=== PATIENT | female | born 1970 | race Caucasian/White ===

== ENCOUNTER 2017-09-02 19:34 | Emergency (ER) | payer OTHER ==
[2017-09-02 19:48] VITALS: BP 136/92; PULSE 98; TEMP 98; BMI 25.7
--- NOTE | 2017-09-02 20:01 | PDOC ---
History of Present Illness - General Chief Complaint: Pain, Acute Stated Complaint: PAIN Time Seen by Provider: 09/02/17 20:00 Past History - Past Medical History Allergies/Adverse Reactions: Allergies Allergy/AdvReac Type Severity Reaction Status Date / Time morphine Allergy Verified 09/02/17 21:01 Home Medications: Ambulatory Orders Clonazepam 0.5 mg PO ASDIR 09/02/17 Estazolam 2 mg PO ASDIR 09/02/17 Gabapentin 600 mg PO ASDIR 09/02/17 Tramadol HCl/Acetaminophen [Tramadol-Acetaminophn 37.5-325] 1 each PO ASDIR Venlafaxine HCl ER [Effexor Xr -] 150 mg PO DAILY 09/02/17 COPD: No Thyroid Disease: Yes (Fibromyalgia) - Suicide/Smoking/Psychosocial Hx Smoking History: Never smoked Have you smoked in the past 12 months: No Information on smoking cessation initiated: No Hx Alcohol Use: No Drug/Substance Use Hx: No Substance Use Type: None *Physical Exam - Vital Signs Last Vital Signs Temp Pulse Resp BP Pulse Ox 98 F 98 H 20 136/92 99 09/02/17 19:41 09/02/17 19:41 09/02/17 19:41 09/02/17 19:41 09/02/17 19:41 *DC/Admit/Observation/Transfer Diagnosis at time of Disposition: Shoulder pain, left Qualifiers: Chronicity: acute Qualified Code(s): M25.512 - Pain in left shoulder - Discharge Dispostion Disposition: HOME Condition at time of disposition: Good Admit: No - Referrals Referrals: Devyn Monroe MD [Staff Physician] - - Patient Instructions Printed Discharge Instructions: DI for Shoulder Pain, How to Use a Sling Additional Instructions: You have shoulder pain. Your x-rays were negative for fracture or dislocation. You were given a sling for support. Wear the sling during the day. Ice the arm for 20 minute intervals 5 times a day. Take ibuprofen 800mg three times a day, not to exceed 3,000mg a day. Take your prescribed tramadol to help with the pain as well. Please follow up with orthopedics by Thursday. A phone number has been provided to you. You should also follow with a primary care doctor for which a referal has also been provided. Return to the ED if your pain gets worse, if you cannot feel your fingers, or if you have any changes in your symptoms Tienes dolor en el hombro Jennifer karla X fueron negativos por fractura o dislocaci n. Te dieron un cabestrillo por apoyo. Use el cabestrillo reagan el da. Hiele el brazo por intervalos de 20 minutos 5 veces por da. [place] ibuprofeno 800 mg joyce veces al da, que no exceda los 3,000 mg por da. [place] oliveira tramadol prescrito para ayudar con el dolor tambin. Por favor haz un seguimiento con ortopedia el viernes. Se te strauss proporcionado un nmero de telfono. Tambin debe seguir con un mdico de atencin primaria para el cual tambin se proporcion un referido. Regrese al departamento de emergencias si oliveira dolor empeora, si no puede sentir jennifer dedos, o si tiene algn cambio en jennifer sntomas Print Language: CZECH - Post Discharge Activity
[2017-09-02] MEDS ORDERED: traMADol HCL 50 MG TABLET PO ONE (21:02)
[2017-09-02] MEDS ORDERED: traMADol HCL 50 MG TABLET ONE (21:04)
[2017-09-02] MEDS ORDERED: IBUPROFEN 400 MG TABLET (FP) PO ONE ×2 (22:36→22:39)
== END 2017-09-02 23:49 | disposition home or self-care (01) ==
LOC: JERFT 19:34
DX: M25.512 Pain in left shoulder (principal)
CPT/HCPCS: 73030-TC-LT; 73060-TC-LT; 93971; 99281-25

== ENCOUNTER 2018-11-08 12:22 | Emergency (ER) | payer OTHER ==
[2018-11-08 12:42] VITALS: BP 143/86; PULSE 77; TEMP 97.9; BMI 25.0
[2018-11-08] MEDS ORDERED: KETOROLAC TROMETHAMINE 60 MG/2 ML VIAL IM ONE (13:42)
[2018-11-08] MEDS ORDERED: KETOROLAC TROMETHAMINE 60 MG/2 ML VIAL ONE (13:50)
--- NOTE | 2018-11-08 14:12 | PDOC ---
History of Present Illness - General Chief Complaint: Injury Stated Complaint: SLIP AND FALL Time Seen by Provider: 11/08/18 13:36 - History of Present Illness Initial Comments: 11/08/18 14:08 48-year-old female with fibromyalgia presents for right-sided pain after fall. No loss of consciousness post injury nausea vomiting or headache. Past History - Past Medical History Allergies/Adverse Reactions: Allergies Allergy/AdvReac Type Severity Reaction Status Date / Time morphine Allergy Verified 09/02/17 21:01 Home Medications: Ambulatory Orders Clonazepam 0.5 mg PO ASDIR 09/02/17 Estazolam 2 mg PO ASDIR 09/02/17 Gabapentin 600 mg PO ASDIR 09/02/17 Venlafaxine HCl ER [Effexor Xr -] 150 mg PO DAILY 09/02/17 Cyclobenzaprine HCl [Flexeril 10 mg] 10 mg PO HS PRN #10 tablet 11/08/18 COPD: No Thyroid Disease: Yes (Fibromyalgia) - Suicide/Smoking/Psychosocial Hx Smoking History: Never smoked Have you smoked in the past 12 months: No Hx Alcohol Use: No Drug/Substance Use Hx: No Substance Use Type: None Review of Systems - Review of Systems Musculoskeletal: Yes: Muscle Pain *Physical Exam - Vital Signs Last Vital Signs Temp Pulse Resp BP Pulse Ox 97.9 F 77 20 143/86 100 11/08/18 12:38 11/08/18 12:38 11/08/18 12:38 11/08/18 12:38 11/08/18 12:38 - Physical Exam Comments: 11/08/18 14:09 Cervical thoracic and lumbar spine skin color and temperature are normal. There is no midline tenderness mild pallor spinal musculature spasm without gross sensorimotor deficits in either by lateral upper or lower extremities. Decreased range of motion. Tenderness is at a proportion to the examination. Patient's exquisitely tender even to light touch. She has no gross sensorimotor deficits is neurovascular intact. Moderate Sedation - Procedure Monitoring Vital Signs: Procedure Monitoring Vital Signs Temperature 97.9 F 11/08/18 12:38 Pulse Rate 77 11/08/18 12:38 Respiratory Rate 20 11/08/18 12:38 Blood Pressure 143/86 11/08/18 12:38 O2 Sat by Pulse Oximetry (%) 100 11/08/18 12:38 ED Treatment Course - Medications Given in the ED: ED Medications Discontinued Medications Generic Name Dose Route Start Last Admin Trade Name Ck PRN Reason Stop Dose Admin Ketorolac Tromethamine 60 mg 11/08/18 13:42 11/08/18 13:54 Toradol Injection - IM 11/08/18 13:43 60 mg ONCE ONE Administration Medical Decision Making - Medical Decision Making 11/08/18 14:10 Minimal relief with Toradol. I will treat her with Flexeril and have her follow- up with orthopedics *DC/Admit/Observation/Transfer Diagnosis at time of Disposition: Muscle strain - Discharge Dispostion Disposition: HOME Condition at time of disposition: Stable Decision to Admit order: No - Referrals Referrals: Seferino Lim MD [Staff Physician] - - Patient Instructions Printed Discharge Instructions: How to Prevent Falls Additional Instructions: Leese use the Flexeril as directed and return to the emergency room should symptoms weight worsen or go unresolved. May weight-bear as tolerated with use of crutches. Follow-up with your primary care physician as well as orthopedic surgery in 1-2 days for further evaluation and treatment options. - Post Discharge Activity
== END 2018-11-08 14:51 | disposition home or self-care (01) ==
LOC: JERFT 12:22
PROC: 3E0233Z Introduction of Anti-inflammatory into Muscle, Percutaneous Approach (ICD-10-PCS; principal; 2018-11-08)
DX: T14.8XXA Other injury of unspecified body region, initial encounter (principal); M79.7 Fibromyalgia; W01.0XXA Fall on same level from slipping, tripping and stumbling without subsequent striking against object, initial encounter; Y93.89 Activity, other specified; Y92.89 Other specified places as the place of occurrence of the external cause; Y99.8 Other external cause status
CPT/HCPCS: 96372; 99281-25

== ENCOUNTER 2018-12-02 13:17 | Emergency (ER) | payer OTHER ==
[2018-12-02 13:41] VITALS: BP 112/68; PULSE 86; TEMP 98.7; BMI 25.7
[2018-12-02] MEDS ORDERED: KETOROLAC TROMETHAMINE 30 MG/1 ML VIAL IM ONE (14:29)
[2018-12-02] MEDS ORDERED: diazePAM 2 MG TABLET PO ONE (14:29)
--- NOTE | 2018-12-02 14:34 | PDOC ---
History of Present Illness - General Chief Complaint: Headache Stated Complaint: HEADACHE Time Seen by Provider: 12/02/18 14:04 History Source: Patient Exam Limitations: No Limitations - History of Present Illness Initial Comments: 12/02/18 14:32 48 year old female with no significant medical or surgical history presents with pain to back of neck and head x 2 weeks. Patient states fell in front of office building, with no nausea, vomiting or loc. Denies dizziness at present. Timing/Duration: reports: 1 week Severity: Yes: mild Associated Symptoms: reports: denies symptoms Past History - Travel Traveled outside of the country in the last 30 days: No Close contact w/someone who was outside of country & ill: No - Past Medical History Allergies/Adverse Reactions: Allergies Allergy/AdvReac Type Severity Reaction Status Date / Time morphine Allergy Verified 12/02/18 13:36 Home Medications: Ambulatory Orders Clonazepam 0.5 mg PO ASDIR 09/02/17 Estazolam 2 mg PO ASDIR 09/02/17 Gabapentin 600 mg PO ASDIR 09/02/17 Venlafaxine HCl ER [Effexor Xr -] 150 mg PO DAILY 09/02/17 Cyclobenzaprine HCl [Flexeril 10 mg] 10 mg PO HS PRN #10 tablet 11/08/18 Cyclobenzaprine HCl [Flexeril -] 5 mg PO HS #3 tablet 12/02/18 COPD: No Thyroid Disease: Yes (Fibromyalgia) - Immunization History Immunization Up to Date: Yes - Suicide/Smoking/Psychosocial Hx Smoking History: Never smoked Have you smoked in the past 12 months: No Hx Alcohol Use: No Drug/Substance Use Hx: No Substance Use Type: None Neuro Specific PMHX - Complaint Specific PMHX Glaucoma: No Herniated Disk: No Laminectomy: No Migraine: No Multiple Sclerosis: No Neuropathy: No TIA: No Review of Systems - Review of Systems Able to Perform ROS?: Yes Is the patient limited Ghanaian proficient: No Constitutional: No: Chills, Fever, Weakness HEENTM: Yes: Other (neck pain). No: Nose Pain, Throat Pain, Mouth Swelling Cardiac (ROS): No: Chest Pain ABD/GI: No: Poor Appetite, Poor Fluid Intake : No: Discharge, Incontinence Neurological: Yes: Headache. No: Numbness, Paresthesia, Tingling, Weakness, Unsteady Gait *Physical Exam - Vital Signs Last Vital Signs Temp Pulse Resp BP Pulse Ox 98.7 F 86 16 112/68 99 12/02/18 13:36 12/02/18 13:36 12/02/18 13:36 12/02/18 13:36 12/02/18 13:36 - Physical Exam General Appearance: Yes: Nourished, Appropriately Dressed HEENT: positive: Pharynx Normal. negative: Nasal Congestion, Rhinorrhea, Sinus Tenderness Neck: positive: Supple. negative: Lymphadenopathy (R), Lymphadenopathy (L), Rigidity, Tender midline Respiratory/Chest: positive: Lungs Clear Cardiovascular: positive: Regular Rhythm, Regular Rate Extremity: positive: Normal Capillary Refill Neurologic: positive: media coordinator II-XII NML intact Moderate Sedation - Procedure Monitoring Vital Signs: Procedure Monitoring Vital Signs Temperature 98.7 F 12/02/18 13:36 Pulse Rate 86 12/02/18 13:36 Respiratory Rate 16 12/02/18 13:36 Blood Pressure 112/68 12/02/18 13:36 O2 Sat by Pulse Oximetry (%) 99 12/02/18 13:36 Medical Decision Making - Medical Decision Making 12/02/18 14:36 48 year old female with no significant medical or surgical history presents with pain in the back of her head and neck pain had xray of cervical spine will await results analgesia and muscle relaxant neck xray from pmd 12/02/18 15:38 no relief of pain sent for head ct and neck ct 12/02/18 17:[address] neck [address] with no fracture or abnormalities pt reports relieve with muscle relaxant d/c home with 3 days of flexeril and recommendation to continue taking medications previously prescribed *DC/Admit/Observation/Transfer Diagnosis at time of Disposition: Neck pain Head ache Qualifiers: Headache type: unspecified Headache chronicity pattern: acute headache Intractability: not intractable Qualified Code(s): R51 - Headache - Discharge Dispostion Disposition: HOME Condition at time of disposition: Good Decision to Admit order: No - Prescriptions Prescriptions: Cyclobenzaprine HCl [Flexeril -] 5 mg PO HS #3 tablet - Referrals Referrals: Mona Martinez MD [Primary Care Provider] - (follow up as previously scheduled ) - Patient Instructions Printed Discharge Instructions: Sinus Headache Additional Instructions: Please follow up with doctor; neurologist as previously scheduled Return to emergency room for change in vision, nausea or vomiting - Post Discharge Activity Forms/Work/School Notes: Back to Work
[2018-12-02] MEDS ORDERED: KETOROLAC TROMETHAMINE 30 MG/1 ML VIAL ONE (14:38)
[2018-12-02] MEDS ORDERED: diazePAM 2 MG TABLET ONE (14:38)
== END 2018-12-02 18:24 | disposition home or self-care (01) ==
LOC: JER 13:17 → JERFT 13:17
PROC: 3E0233Z Introduction of Anti-inflammatory into Muscle, Percutaneous Approach (ICD-10-PCS; principal; 2018-12-02)
DX: M54.2 Cervicalgia (principal); R51 Headache; M79.7 Fibromyalgia
CPT/HCPCS: 70450-TC; 72125-TC; 99281-25

== ENCOUNTER 2019-01-05 09:11 | Emergency (ER) | payer OTHER ==
[2019-01-05 09:30] VITALS: BP 119/75; PULSE 88; TEMP 98.6; BMI 26.6
[2019-01-05] MEDS ORDERED: KETOROLAC TROMETHAMINE 60 MG/2 ML VIAL IM ONE (09:58)
[2019-01-05] MEDS ORDERED: KETOROLAC TROMETHAMINE 60 MG/2 ML VIAL ONE (10:00)
--- NOTE | 2019-01-05 10:04 | PDOC ---
History of Present Illness - General Chief Complaint: Pain, Acute Stated Complaint: RT SHOULDER PAIN RADIATES TO THE BACK Time Seen by Provider: 01/05/19 09:38 History Source: Patient Exam Limitations: No Limitations - History of Present Illness Initial Comments: 01/05/19 09:58 Patient came with complaints of worsening chronic body pain. Is on a pain management program for osteoarthritis for multiple sites. Takes tramadol, gabapentin, and Naprosyn but states her right shoulder and arm pain is progressively worsened. Did not speak to her neurologist or pain management physician and has not taken any new medications recently for pain relief. Denies fevers, chest pain or palpitations, no recent injury or trauma. Has no accident or illness associated with this chronic pain. Occurred: reports: this morning, yesterday Severity: reports: moderate Pain Location: reports: upper extremity (right shoulder) Method of Injury: Yes: unknown Modifying Factors: improves with: None Loss of Consciousness: no loss of consciousness Past History - Travel Traveled outside of the country in the last 30 days: No Close contact w/someone who was outside of country & ill: No - Past Medical History Allergies/Adverse Reactions: Allergies Allergy/AdvReac Type Severity Reaction Status Date / Time morphine Allergy Verified 01/05/19 09:30 Home Medications: Ambulatory Orders Clonazepam 0.5 mg PO ASDIR 09/02/17 Estazolam 2 mg PO ASDIR 09/02/17 Gabapentin 600 mg PO ASDIR 09/02/17 Venlafaxine HCl ER [Effexor Xr -] 150 mg PO DAILY 09/02/17 Naproxen [Naprosyn] 500 mg PO BID 01/05/19 Tramadol HCl 50 mg PO BID 01/05/19 COPD: No Thyroid Disease: Yes (Fibromyalgia) Other medical history: osteoarthritis - Immunization History Immunization Up to Date: Yes - Suicide/Smoking/Psychosocial Hx Smoking History: Never smoked Have you smoked in the past 12 months: No Information on smoking cessation initiated: No Hx Alcohol Use: No Drug/Substance Use Hx: No Substance Use Type: None Review of Systems - Review of Systems Able to Perform ROS?: Yes Is the patient limited Zimbabwean proficient: Yes Constitutional: Yes: Symptoms Reported, See HPI, Loss of Appetite, Malaise. No : Fever HEENTM: Yes: See HPI. No: Symptoms Reported Respiratory: No: See HPI ABD/GI: No: Symptoms Reported : No: Symptoms Reported Musculoskeletal: Yes: Symptoms Reported, See HPI, Muscle Pain, Muscle Weakness Integumentary: Yes: See HPI. No: Symptoms Reported, Bruising Neurological: Yes: Symptoms reported, See HPI, Headache. No: Numbness, Paresthesia Psychiatric: Yes: Depression All Other Systems: Reviewed and Negative *Physical Exam - Vital Signs Last Vital Signs Temp Pulse Resp BP Pulse Ox 98.6 F 88 18 119/75 100 01/05/19 09:28 01/05/19 09:28 01/05/19 09:28 01/05/19 09:28 01/05/19 09:28 - Physical Exam General Appearance: Yes: Nourished, Appropriately Dressed, Apparent Distress, Mild Distress, Moderate Distress HEENT: positive: EMIL, Normal ENT Inspection, TMs Normal, Pharynx Normal Neck: positive: Supple. negative: Tender Respiratory/Chest: positive: Lungs Clear, Normal Breath Sounds Gastrointestinal/Abdominal: positive: Normal Bowel Sounds, Soft. negative: Tender Musculoskeletal: positive: Other (pain to upper right arm/ no swelling/ bone pain./ no deformity , HAs FROM to 180degrees to abduction/ forward flexion/ ). negative: Muscle Spasm, Vertebral Tenderness Extremity: positive: Normal Capillary Refill, Normal Inspection Integumentary: positive: Normal Color, Dry, Warm, Pale Neurologic: positive: photographic double II-XII NML intact, Fully Oriented, Alert, Normal Mood/ Affect, Normal Response, Motor Strength 5/5 Moderate Sedation - Procedure Monitoring Vital Signs: Procedure Monitoring Vital Signs Temperature 98.6 F 01/05/19 09:28 Pulse Rate 88 01/05/19 09:28 Respiratory Rate 18 01/05/19 09:28 Blood Pressure 119/75 01/05/19 09:28 O2 Sat by Pulse Oximetry (%) 100 01/05/19 09:28 Progress Note - Progress Note Progress Note: Acute on chronic pain, will refer back to Pain Management *DC/Admit/Observation/Transfer Diagnosis at time of Disposition: Chronic pain disorder - Discharge Dispostion Disposition: HOME Condition at time of disposition: Stable Decision to Admit order: No - Referrals - Patient Instructions Printed Discharge Instructions: DI for Chronic Pain -- Adult Additional Instructions: Rest, ice to area on and off for 15 minutes 4-6 times a day Avoid heavy lifting or exercise until pain and swelling is resolved or until further directed Followup with neurologist/ painb management/ orthopedist in one to 2 days if not improving, if significantly improved may wait one week for followup Continue all pain medications as directed and seek evaluation with Pain Management - Post Discharge Activity
== END 2019-01-05 10:31 | disposition home or self-care (01) ==
LOC: JERFT 09:11
PROC: 3E0233Z Introduction of Anti-inflammatory into Muscle, Percutaneous Approach (ICD-10-PCS; principal; 2019-01-05)
DX: G89.4 Chronic pain syndrome (principal); M79.7 Fibromyalgia; M19.90 Unspecified osteoarthritis, unspecified site
CPT/HCPCS: 96372; 99281-25

== ENCOUNTER 2019-04-23 17:59 | Emergency (ER) | payer OTHER ==
[2019-04-23 18:07] VITALS: BP 121/76; PULSE 88; TEMP 98.2; BMI 29.2
--- NOTE | 2019-04-23 19:04 | PDOC ---
History of Present Illness - General Chief Complaint: Pain Stated Complaint: LT LEG SWELLING Time Seen by Provider: 04/23/19 18:54 History Source: Patient Exam Limitations: No Limitations - History of Present Illness Initial Comments: 04/23/19 19:00 c./o pain and swelling to left lower extremity x 3-4 days. IS taking many tyoes of antinflammatories for Fibromyalgia but concerned as feels is becoming worse. Occurred: reports: just prior to arrival (a few days ) Pain Location: reports: lower extremity Associated Symptoms (Fall): denies symptoms Past History - Travel Traveled outside of the country in the last 30 days: No Close contact w/someone who was outside of country & ill: No - Past Medical History Allergies/Adverse Reactions: Allergies Allergy/AdvReac Type Severity Reaction Status Date / Time morphine Allergy Verified 04/23/19 18:07 Home Medications: Ambulatory Orders Clonazepam 0.5 mg PO ASDIR 09/02/17 Estazolam 2 mg PO ASDIR 09/02/17 Gabapentin 600 mg PO ASDIR 09/02/17 Venlafaxine HCl ER [Effexor Xr -] 150 mg PO DAILY 09/02/17 Naproxen [Naprosyn] 500 mg PO BID 01/05/19 Tramadol HCl 50 mg PO BID 01/05/19 Diclofenac Sodium [Voltaren] 100 gm TP BID #1 gel..gram. 04/25/19 COPD: No Thyroid Disease: Yes (Fibromyalgia) Other medical history: osteoarthritis - Immunization History Immunization Up to Date: Yes - Suicide/Smoking/Psychosocial Hx Smoking History: Never smoked Have you smoked in the past 12 months: No Hx Alcohol Use: No Drug/Substance Use Hx: No Substance Use Type: None Review of Systems - Review of Systems Able to Perform ROS?: Yes Is the patient limited Amharic proficient: Yes Constitutional: Yes: Symptoms Reported, See HPI, Malaise. No: Fever HEENTM: No: See HPI Respiratory: Yes: See HPI. No: Cough Cardiac (ROS): Yes: See HPI. No: Symptoms Reported, Chest Pain Musculoskeletal: Yes: Symptoms Reported, See HPI, Joint Swelling (left knee ), Muscle Pain Integumentary: Yes: See HPI, Erythema. No: Symptoms Reported Neurological: Yes: Symptoms reported All Other Systems: Reviewed and Negative *Physical Exam - Vital Signs Last Vital Signs Temp Pulse Resp BP Pulse Ox 98.2 F 88 18 121/76 99 04/23/19 18:04 04/23/19 18:04 04/23/19 18:04 04/23/19 18:04 04/23/19 18:04 - Physical Exam General Appearance: Yes: Nourished, Appropriately Dressed, Apparent Distress HEENT: positive: EMIL, Normal ENT Inspection, TMs Normal, Pharynx Normal Neck: positive: Supple. negative: Tender Respiratory/Chest: positive: Lungs Clear, Normal Breath Sounds Gastrointestinal/Abdominal: positive: Soft Extremity: positive: Normal Inspection, Normal Range of Motion, Tender (= patient reports as swollen but no obvious difference in calf circumfrence ) Integumentary: positive: Normal Color, Warm, Erythema (faint erythema to upper posterior fossa left leg/ knee otw normal ) Neurologic: positive: progressive care manager II-XII NML intact, Fully Oriented, Alert, Normal Mood/ Affect, Normal Response, Motor Strength 5/5 Progress Note - Progress Note Progress Note: will obtain US leg to R/O DVT. *DC/Admit/Observation/Transfer Diagnosis at time of Disposition: Muscle strain, lower leg Qualifiers: Encounter type: initial encounter Laterality: left Qualified Code(s): S86.912A - Strain of unspecified muscle(s) and tendon(s) at lower leg level, left leg, initial encounter - Discharge Dispostion Disposition: HOME Condition at time of disposition: Stable Decision to Admit order: No - Prescriptions Prescriptions: Diclofenac Sodium [Voltaren] 100 gm TP BID #1 gel..gram. - Referrals Referrals: Dorcas Kumari MD [Primary Care Provider] - - Patient Instructions Printed Discharge Instructions: DI for Calf Muscle Strain Additional Instructions: Rest, ice to area on and off for 15 minutes 4-6 times a day Avoid heavy lifting or exercise until pain and swelling is resolved or until further directed Keep area highly elevated to reduce swelling Use splints/Merrick wrap as directed Followup with orthopedist in one to 2 days if not improving, if significantly improved may wait one week for followup with orthopedist May use ibuprofen every 6 hours as needed for pain - Post Discharge Activity Forms/Work/School Notes: Back to Work
== END 2019-04-23 20:26 | disposition home or self-care (01) ==
LOC: JERFT 17:59
DX: S86.812A Strain of other muscle(s) and tendon(s) at lower leg level, left leg, initial encounter (principal); M79.7 Fibromyalgia; M19.90 Unspecified osteoarthritis, unspecified site
CPT/HCPCS: 93971-TC; 99282-25

== ENCOUNTER 2019-05-03 14:50 | Emergency (ER) | payer OTHER ==
--- NOTE | 2019-05-03 15:04 | PDOC ---
Rapid Medical Evaluation Time Seen by Provider: 05/03/19 15:01 Medical Evaluation: Allergies Allergy/AdvReac Type Severity Reaction Status Date / Time morphine Allergy Verified 05/03/19 14:58 05/03/19 15:01 I have performed a brief in-person evaluation of this patient. The patient presents with a chief complaint of: h/o fibromyalgia, here w/ [facility]/ neck/arm/leg pain c/w her fibromyalgia, w/ no relief w/ meds Pertinent physical exam findings:stable and in NAD I have ordered the following:nothing The patient will proceed to the ED for further evaluation. Discharge Disposition - Diagnosis Pain of multiple sites - Referrals - Patient Instructions - Post Discharge Activity
[2019-05-03 15:07] VITALS: BP 157/79; PULSE 83; TEMP 98.5; BMI 28.3
[2019-05-03] MEDS: METHOCARBAMOL 500 MG TABLET PO ONE ×2 (15:41→15:48)
--- NOTE | 2019-05-03 15:42 | PDOC ---
History of Present Illness - General Chief Complaint: Pain, Acute Stated Complaint: RT. SIDE BODY PAIN Time Seen by Provider: 05/03/19 15:01 History Source: Patient Exam Limitations: Language Barrier (Ezekiel Reno #[id number]) - History of Present Illness Initial Comments: 05/03/19 15:35 HISTORY OF PRESENT ILLNESS: 49-year-old woman past medical history of osteoarthritis and fibromyalgia presents emergency department for evaluation of right-sided neck and shoulder pain for 4 days. Patient has been taking her Ultracet, meloxicam and gabapentin with minimal relief of symptoms. Patient reports she sees Dr. Pineda for her pain management and has an appointment later this week. She last saw him approximately one month ago where he increased her gabapentin 1200 mg twice a day. Patient denies any aggravating or alleviating factors. She reports her pain is 10/10 but is unable to describe the feeling. She is only able to states it feels like her fibromyalgia with the arthritis. Patient denies any neurosensory deficits. No recent travel or sick contacts. PAST MEDICAL HISTORY: see HPI SURGICAL HISTORY: Denies ALLERGIES: No known drug allergies REVIEW OF SYSTEMS General/Constitutional: Denies fever or chills. Denies weakness, weight change. HEENT: Denies change in vision. Denies ear pain or discharge. Denies sore throat. Cardiovascular: Denies chest pain or shortness of breath. Respiratory: Denies cough, wheezing, or hemoptysis. Gastrointestinal: Denies nausea, vomiting, diarrhea or constipation. Denies rectal bleeding. Genitourinary: Denies dysuria, frequency, or change in urination. Musculoskeletal: see HPI Skin and breasts: Denies rash or easy bruising. Neurologic: Denies headache, vertigo, loss of consciousness, or loss of sensation. Psychiatric: Denies depression or anxiety. Endocrine: Denies increased thirst. Denies abnormal weight change. Hematologic/Lymphatic: Denies anemia, easy bleeding, or history of blood clots. Allergic/Immunologic: Denies hives or skin allergy. Denies latex allergy. PHYSICAL EXAM General Appearance: Well-appearing, appropriately dressed. No apparent distress , no intoxication. Respiratory/Chest: Lungs CTAB. No shortness of breath, chest tenderness, respiratory distress, accessory muscle use. No crackles, rales, rhonchi, stridor , wheezing, dullness Cardiovascular: RRR. S1, S2. No JVD, murmur, bradycardia, tachycardia. Vascular Pulses: Dorsalis-Pedis (R): 2+, Dorsalis-Pedis (L): 2+ Lymphatic: No adenopathy, tenderness. Musculoskeletal/Extremities: Normal inspection. FROM of all extremities, normal capillary refill. Pelvis Stable. No CVA tenderness. No tenderness to extremities, pedal edema, swelling, erythema or deformity. Palpable muscle spasm present to the right trapezius. Integumentary: Appropriate color, dry, warm. No cyanosis, erythema, jaundice or rash Neurologic: rehab rn II-XII intact. Fully oriented, alert. Appropriate mood/affect. Motor strength 5/5. No appreciable EOM palsy, facial droop or sensory deficit. Past History - Past Medical History Allergies/Adverse Reactions: Allergies Allergy/AdvReac Type Severity Reaction Status Date / Time morphine Allergy Verified 05/03/19 14:58 Home Medications: Ambulatory Orders Clonazepam 0.5 mg PO ASDIR 09/02/17 Estazolam 2 mg PO ASDIR 09/02/17 Gabapentin 600 mg PO ASDIR 09/02/17 Venlafaxine HCl ER [Effexor Xr -] 150 mg PO DAILY 09/02/17 Naproxen [Naprosyn] 500 mg PO BID 01/05/19 Tramadol HCl 50 mg PO BID 01/05/19 Diclofenac Sodium [Voltaren] 100 gm TP BID #1 gel..gram. 04/25/19 Methocarbamol [Robaxin -] 1,000 mg PO BID #30 tablet 05/03/19 COPD: No Thyroid Disease: Yes (Fibromyalgia) - Immunization History Immunization Up to Date: Yes - Suicide/Smoking/Psychosocial Hx Smoking History: Never smoked Have you smoked in the past 12 months: No Information on smoking cessation initiated: No Hx Alcohol Use: No Drug/Substance Use Hx: No Substance Use Type: None *Physical Exam - Vital Signs Last Vital Signs Temp Pulse Resp BP Pulse Ox 98.5 F 83 17 157/79 98 05/03/19 15:03 05/03/19 15:03 05/03/19 15:03 05/03/19 15:03 05/03/19 15:03 Medical Decision Making - Medical Decision Making 05/03/19 15:42 A/P: 49-year-old woman with muscle spasms of the trapezius Robaxin 1 g orally now Discharge home with prescription for Biaxin to follow-up with Dr. Pineda as previously scheduled. *DC/Admit/Observation/Transfer Diagnosis at time of Disposition: Muscle spasm of shoulder region - Discharge Dispostion Disposition: HOME Condition at time of disposition: Fair Decision to Admit order: No - Prescriptions Prescriptions: Methocarbamol [Robaxin -] 1,000 mg PO BID #30 tablet - Referrals Referrals: Dorcas Kumari MD [Primary Care Provider] - - Patient Instructions Additional Instructions: Rest, no heavy lifting or exercise until pain is resolved Hot soaks to neck and low back as often as possible/hot showers or Jacuzzis No massage or therapy until spasm is gone Robaxin 1500mg every 8 hours as needed for spasm If not significant improvement within 24 hours with medication and rest regime, followup with private physician for change in medications and /or therapy. - Post Discharge Activity
[2019-05-03] MEDS ORDERED: METHOCARBAMOL 500 MG TABLET ONE (15:44)
[2019-05-03] MEDS ORDERED: KETOROLAC TROMETHAMINE 60 MG/2 ML VIAL IM ONE (16:14)
[2019-05-03] MEDS ORDERED: KETOROLAC TROMETHAMINE 60 MG/2 ML VIAL ONE (16:16)
== END 2019-05-03 15:50 | disposition home or self-care (01) ==
LOC: JERFT 14:50
PROC: 3E0233Z Introduction of Anti-inflammatory into Muscle, Percutaneous Approach (ICD-10-PCS; principal; 2019-05-03)
DX: M79.7 Fibromyalgia (principal); M19.90 Unspecified osteoarthritis, unspecified site
CPT/HCPCS: 96372; 99281-25

== ENCOUNTER 2019-06-15 13:50 | Emergency (ER) | payer OTHER ==
[2019-06-15 13:58] VITALS: BP 128/79; PULSE 88; TEMP 99.2; BMI 28.3
--- NOTE | 2019-06-15 13:58 | PDOC ---
Rapid Medical Evaluation Time Seen by Provider: 06/15/19 13:55 Medical Evaluation: Allergies Allergy/AdvReac Type Severity Reaction Status Date / Time morphine Allergy Verified 05/03/19 14:58 06/15/19 13:57 06/15/19 13:07 I have performed a brief in-person evaluation of this patient. The patient presents with a chief complaint of:HENDERSON/neck pain, recurrent. H/o fibromyalgia and OA. Of note, CT cspine this year was unremarkable Pertinent physical exam findings:unremarkable I have ordered the following:nothing The patient will proceed to the ED for further evaluation. Discharge Disposition - Diagnosis Neck pain - Referrals - Patient Instructions - Post Discharge Activity
[2019-06-15] MEDS ORDERED: KETOROLAC TROMETHAMINE 60 MG/2 ML VIAL IM ONE (14:40)
[2019-06-15] MEDS ORDERED: KETOROLAC TROMETHAMINE 60 MG/2 ML VIAL ONE (14:41)
--- NOTE | 2019-06-15 14:48 | PDOC ---
History of Present Illness - General Chief Complaint: Pain Stated Complaint: PAIN Time Seen by Provider: 06/15/19 13:55 - History of Present Illness Initial Comments: 06/15/19 14:47 49-year-old female presents for evaluation of one week of neck pain with cervical radicular symptoms intermittently. She takes tramadol and Neurontin with minimal relief. Past History - Past Medical History Allergies/Adverse Reactions: Allergies Allergy/AdvReac Type Severity Reaction Status Date / Time morphine Allergy Verified 06/15/19 13:58 Home Medications: Ambulatory Orders Clonazepam 0.5 mg PO ASDIR 09/02/17 Estazolam 2 mg PO ASDIR 09/02/17 Gabapentin 600 mg PO ASDIR 09/02/17 Venlafaxine HCl ER [Effexor Xr -] 150 mg PO DAILY 09/02/17 Naproxen [Naprosyn] 500 mg PO BID 01/05/19 Tramadol HCl 50 mg PO BID 01/05/19 Diclofenac Sodium [Voltaren] 100 gm TP BID #1 gel..gram. 04/25/19 Methocarbamol [Robaxin -] 1,000 mg PO BID #30 tablet 05/03/19 Cyclobenzaprine HCl [Flexeril 10 mg] 10 mg PO HS PRN #10 tablet 06/15/19 Methylprednisolone [Medrol Dose Miguel] 4 mg PO ASDIR #21 tablet 06/15/19 COPD: No Thyroid Disease: Yes (Fibromyalgia) Other medical history: osteoarthritis in her back - Immunization History Immunization Up to Date: Yes - Suicide/Smoking/Psychosocial Hx Smoking History: Never smoked Have you smoked in the past 12 months: No Hx Alcohol Use: No Drug/Substance Use Hx: No Substance Use Type: None Review of Systems - Review of Systems Constitutional: No: Fever Musculoskeletal: Yes: Neck Pain *Physical Exam - Vital Signs Last Vital Signs Temp Pulse Resp BP Pulse Ox 99.2 F 88 18 128/79 99 06/15/19 13:56 06/15/19 13:56 06/15/19 13:56 06/15/19 13:56 06/15/19 13:56 - Physical Exam Comments: 06/15/19 14:46 Cervical spine skin color and temperature are normal; range of motion slightly decreased. 5 out of 5 strength bilateral upper extremities. There is no midline tenderness, there is mild bilateral paracervical muscular spasm and tenderness. NVID free of any gross sensory or motor deficits Medical Decision Making - Medical Decision Making 06/15/19 14:45 Medrol Dosepak and Flexeril for cervical radiculopathy follow-up with neurosurgery *DC/Admit/Observation/Transfer Diagnosis at time of Disposition: Neck pain, Muscle strain, Cervical radiculopathy - Discharge Dispostion Disposition: HOME Condition at time of disposition: Stable Decision to Admit order: No - Referrals Referrals: Ramakrishna Chew MD, FAANS [Staff Physician] - - Patient Instructions Printed Discharge Instructions: DI for Cervical Radiculopathy Additional Instructions: Please start steroid pack in the morning. Take the medication as directed. The muscle relaxers one tablet before bedtime and will make you sleepy. He may take Tylenol as directed in addition to the steroid pack. Avoid anti-inflammatory such as Advil Motrin Aleve and ibuprofen. You're given an injection of a long- acting anti-inflammatory in the emergency room do not take any anti- inflammatories. Return to the emergency room should symptoms worsen or go unresolved and follow- up with neuro or spine surgery without fail in 1-2 days for further evaluation and treatment options. - Post Discharge Activity
== END 2019-06-15 14:54 | disposition home or self-care (01) ==
LOC: JERFT 13:50
PROC: 3E0233Z Introduction of Anti-inflammatory into Muscle, Percutaneous Approach (ICD-10-PCS; principal; 2019-06-15)
DX: M54.2 Cervicalgia (principal); S16.1XXA Strain of muscle, fascia and tendon at neck level, initial encounter; M54.12 Radiculopathy, cervical region; X58.XXXA Exposure to other specified factors, initial encounter; Y93.89 Activity, other specified; Y92.89 Other specified places as the place of occurrence of the external cause
CPT/HCPCS: 96372; 99281-25

== ENCOUNTER 2019-07-08 14:57 | Emergency (ER) | payer OTHER ==
[2019-07-08 15:19] VITALS: BP 148/86; PULSE 101; TEMP 98; BMI 27.9
--- NOTE | 2019-07-08 15:20 | PDOC ---
Rapid Medical Evaluation Medical Evaluation: Allergies Allergy/AdvReac Type Severity Reaction Status Date / Time morphine Allergy Verified 06/15/19 13:58 I have performed a brief in-person evaluation of this patient. The patient presents with a chief complaint of: c/o neck, posterior strauss, upper back pain since 4 days ago; saw pain management 2 days ago and got cortisone injection but states pain not any better; hx of fibromyalgia, OA; is taking tramadol, gabapentin, ultracet Pertinent physical exam findings: crying, pain with turning neck, +muscle spasms I have ordered the following: patient refusing pain meds currently The patient will proceed to the ED for further evaluation. 07/08/19 15:15
[2019-07-08] MEDS ORDERED: ACETAMINOPHEN 1000 MG/100 ML VIAL (NON FORMULARY) IVPB ONE (17:42)
[2019-07-08] MEDS ORDERED: SODIUM CHLORIDE 1,000 ML IV STA (17:42)
[2019-07-08] MEDS ORDERED: METOCLOPRAMIDE HCL INJECTION 10 MG/2 ML VIAL IVPB ONE (17:42)
--- NOTE | 2019-07-08 17:42 | PDOC ---
History of Present Illness - General Chief Complaint: Head/Neck problem Stated Complaint: HEAD/NECK PAIN Time Seen by Provider: 07/08/19 15:15 History Source: Patient Exam Limitations: No Limitations Past History - Travel Traveled outside of the country in the last 30 days: No Close contact w/someone who was outside of country & ill: No - Past Medical History Allergies/Adverse Reactions: Allergies Allergy/AdvReac Type Severity Reaction Status Date / Time morphine Allergy Verified 07/08/19 15:19 Home Medications: Ambulatory Orders Clonazepam 0.5 mg PO ASDIR 09/02/17 Estazolam 2 mg PO ASDIR 09/02/17 Gabapentin 600 mg PO ASDIR 09/02/17 Venlafaxine HCl ER [Effexor Xr -] 150 mg PO DAILY 09/02/17 Naproxen [Naprosyn] 500 mg PO BID 01/05/19 Tramadol HCl 50 mg PO BID 01/05/19 Diclofenac Sodium [Voltaren] 100 gm TP BID #1 gel..gram. 04/25/19 Methocarbamol [Robaxin -] 1,000 mg PO BID #30 tablet 05/03/19 Cyclobenzaprine HCl [Flexeril 10 mg] 10 mg PO HS PRN #10 tablet 06/15/19 Methylprednisolone [Medrol Dose Miguel] 4 mg PO ASDIR #21 tablet 06/15/19 COPD: No Thyroid Disease: Yes (Fibromyalgia, osteoarthritis) - Immunization History Immunization Up to Date: Yes - Suicide/Smoking/Psychosocial Hx Smoking History: Never smoked Have you smoked in the past 12 months: No Information on smoking cessation initiated: No Hx Alcohol Use: No Drug/Substance Use Hx: No Substance Use Type: None Review of Systems - Review of Systems Able to Perform ROS?: Yes Comments:: 07/08/19 19:45 CONSTITUTIONAL: Absent: fever, chills, diaphoresis, generalized weakness, malaise, loss of appetite HEENT: Absent: rhinorrhea, nasal congestion, throat pain, throat swelling, difficulty swallowing, mouth swelling, ear pain, eye pain, visual Changes CARDIOVASCULAR: Absent: chest pain, loss of consciousness, palpitations, irregular heart rate, peripheral edema RESPIRATORY: Absent: cough, shortness of breath, dyspnea with exertion, orthopnea, wheezing, stridor, hemoptysis GASTROINTESTINAL: Absent: abdominal pain, abdominal distension, nausea, vomiting, diarrhea, constipation, melena, hematochezia GENITOURINARY: Absent: dysuria, frequency, urgency, hesitancy, hematuria, flank pain, genital pain MUSCULOSKELETAL: Present: neck pain Absent: myalgia, arthralgia, joint swelling SKIN: Absent: rash, itching, pallor HEMATOLOGIC/IMMUNOLOGIC: Absent: easy bleeding, easy bruising, lymphadenopathy, frequent infections ENDOCRINE: Absent: unexplained weight gain, unexplained weight loss, heat intolerance, cold intolerance NEUROLOGIC: Present: headache Absent: focal weakness or paresthesias, dizziness, unsteady gait, seizure, mental status changes, bladder or bowel incontinence PSYCHIATRIC: Absent: anxiety, depression, suicidal or homicidal ideation, hallucinations. Is the patient limited Spanish proficient: No *Physical Exam - Vital Signs Last Vital Signs Temp Pulse Resp BP Pulse Ox 98 F 101 H 16 148/86 100 07/08/19 15:17 07/08/19 15:17 07/08/19 15:17 07/08/19 15:17 07/08/19 15:17 - Physical Exam Comments: 07/08/19 19:46 GENERAL: Well developed, well nourished. Awake and alert. No acute distress. HEENT: Normocephalic, atraumatic. PERRLA, EOMI. No conjunctival pallor. Sclera are non- icteric. Moist mucous membranes. Oropharynx is clear. NECK: Supple. Decreased ROM d/t pain. No JVD. Carotid pulses 2+ and symmetric, without bruits. No thyromegaly. No lymphadenopathy. CARDIOVASCULAR: Regular rate and rhythm. No murmurs, rubs, or gallops. Distal pulses are 2+ and symmetric. PULMONARY: No evidence of respiratory distress. Lungs clear to auscultation bilaterally. No wheezing, rales or rhonchi. ABDOMINAL: Soft. Non-tender. Non-distended. No rebound or guarding. No organomegaly. Normoactive bowel sounds. MUSCULOSKELETAL TTP of the insert of the L trapezius into the L occiput. Normal range of motion at all joints. No bony deformities or tenderness. No CVA tenderness. EXTREMITIES: No cyanosis. No clubbing. No edema. No calf tenderness. SKIN: Warm and dry. Normal capillary refill. No rashes. No jaundice. NEUROLOGICAL: Alert, awake, appropriate. Cranial nerves 2-12 intact. No deficits to light touch and temperature in face, upper extremities and lower extremities. No motor deficits in the in face, upper extremities and lower extremities. Normoreflexic in the upper and lower extremities. Normal speech. Toes are down- going bilaterally. Gait is normal without ataxia. PSYCHIATRIC: Cooperative. Good eye contact. Appropriate mood and affect. ED Treatment Course - LABORATORY CBC & Chemistry Diagram: 07/08/19 16:56 07/08/19 16:56 Medical Decision Making - Medical Decision Making 07/08/19 19:47 he patient is a 49-year-old female with past medical history of herniated disks , fibromyalgia, presents to the ER today with headache Thursday. She notes that she also has a strong pain in the left side of her neck. She states that she went to see her pain management doctor on Thursday who gave her shot of cortisone however she states that the shot did not help. She now states that the pain travels up her neck to her entire head. She states that it hurts to touch her scalp. She does not want to move her head due to pain. She has not taken any medication at home for her headache. Denies fevers, chills, numbness and tingling to the upper extremities, weakness, lightheadedness. A/P: Headache On exam patient with palpable muscle spasm to the left trapezius with pain with palpation to the insertion of the left occiput. Initial range of motion testing is limited due to pain. Patient is grossly neurologically intact with no focal findings. Basic labs, IV medications ordered Repeat neck exam after IV medication now with increased range of motion. She now rates her pain as 7 out of 10 after medication Patient pending CT exam for disposal Sign out given to MISSY Jones *DC/Admit/Observation/Transfer Diagnosis at time of Disposition: Headache Qualifiers: Headache type: unspecified Headache chronicity pattern: unspecified pattern Intractability: not intractable Qualified Code(s): R51 - Headache - Discharge Dispostion Disposition: HOME Condition at time of disposition: Improved - Referrals Referrals: Dorcas Kumari MD [Primary Care Provider] - - Patient Instructions Additional Instructions: Jennifer laboratorios y aissatou de CT fueron todos negativos [place] motrin, tylenol o exedrina para el dolor de aissatou y consulte con oliveira mdico especialista en dolor. - Post Discharge Activity
[2019-07-08 18:09] LABS: BASO % 0.6 % (0-2.0); EOS % 4.8 % (0-4.5); HEMATOCRIT 42.6 % (32.4-45.2); HEMOGLOBIN 13.9 GM/dL (10.7-15.3); LYMPH % 19.7 % (8-40); MCHC 32.7 g/dl (32.0-36.0); MEAN CELL VOLUME 91.8 fl (80-96); MEAN PLT VOLUME 8.5 fl (7.5-11.1); MONO % 7.3 % (3.8-10.2); NEUT % 67.6 % (42.8-82.8); PLATELET COUNT 255 K/MM3 (134-434); RBC 4.64 M/mm3 (3.60-5.2); RDW 15.6 % (11.6-15.6); WHITE BLOOD COUNT 7.3 K/mm3 (4.0-10.0)
[2019-07-08 18:24] LABS: INR 0.98 (0.83-1.09); PROTHROMBIN TIME (PATIENT) 11.6 SEC (9.7-13.0)
[2019-07-08 18:27] LABS: BILIRUBIN,TOTAL 0.3 mg/dL (0.2-1); BLOOD UREA NITROGEN 8.6 mg/dL (7-18); CALCIUM 9.4 mg/dL (8.5-10.1); CREATININE 0.8 mg/dL (0.55-1.3)
[2019-07-08] MEDS ORDERED: ACETAMINOPHEN INJECTION 100 ML IVPB ONE (18:27)
[2019-07-08] MEDS ORDERED: METOCLOPRAMIDE HCL INJECTION 10 MG/2 ML VIAL ONE (18:27)
[2019-07-08] MEDS ORDERED: KETOROLAC TROMETHAMINE 30 MG/1 ML VIAL IVPUSH ONE (20:00)
--- NOTE | 2019-07-08 20:04 | PDOC ---
*Physical Exam - Vital Signs Last Vital Signs Temp Pulse Resp BP Pulse Ox 98 F 101 H 16 148/86 100 07/08/19 15:17 07/08/19 15:17 07/08/19 15:17 07/08/19 15:17 07/08/19 15:17 - Physical Exam General Appearance: Yes: Appropriately Dressed. No: Apparent Distress HEENT: positive: Normal Voice Neck: positive: Supple Respiratory/Chest: negative: Respiratory Distress Integumentary: positive: Dry, Warm Neurologic: positive: Fully Oriented, Alert, Normal Mood/Affect, Motor Strength 02/20 ED Treatment Course - LABORATORY CBC & Chemistry Diagram: 07/08/19 16:56 07/08/19 16:56 - ADDITIONAL ORDERS Additional order review: Laboratory Results 07/08/19 07/08/19 07/08/19 16:56 16:56 16:56 PT with INR 11.60 INR 0.98 Sodium 138 Potassium 4.0 Chloride 102 Carbon Dioxide 30 Anion Gap 5 L BUN 8.6 Creatinine 0.8 Est GFR (CKD-EPI)AfAm 101.75 Est GFR (CKD-EPI)NonAf 87.79 Random Glucose 103 Calcium 9.4 Total Bilirubin 0.3 AST 20 ALT 23 Alkaline Phosphatase 91 Total Protein 8.0 Albumin 4.0 Serum , Qual Negative 07/08/19 16:56 RBC 4.64 MCV 91.8 MCHC 32.7 RDW 15.6 MPV 8.5 Neutrophils % 67.6 Lymphocytes % 19.7 Monocytes % 7.3 Eosinophils % 4.8 H Basophils % 0.6 - Medications Given in the ED: ED Medications Discontinued Medications Generic Name Dose Route Start Last Admin Trade Name Ck PRN Reason Stop Dose Admin Acetaminophen 1,000 mg 07/08/19 17:42 07/08/19 19:14 Ofirmev Injection - IVPB 07/08/19 17:43 1,000 mg ONCE ONE Administration Diphenhydramine HCl 12.5 mg 07/08/19 17:42 07/08/19 18:37 Benadryl Injection - IVPB 07/08/19 17:43 12.5 mg ONCE ONE Administration Sodium Chloride 1,000 mls @ 1,000 mls/hr 07/08/19 17:42 07/08/19 18:37 Normal Saline - IV 07/08/19 18:41 1,000 mls/hr ASDIR STA Administration Metoclopramide HCl 10 mg 07/08/19 17:42 07/08/19 18:37 Reglan Injection - IVPB 07/08/19 17:43 10 mg ONCE ONE Administration Medical Decision Making - Medical Decision Making 07/08/19 20:02 Signed out to me pending CT head read and reassessment 49 yo F, h/o fibromyalgia, herniated discs, anxiety, here w/ headache/neck pain x 5 day, not relieved w/ cortisone shot given by her pain management MD. No dizziness, blurry vision, n/v or focal weakness. Neuro intact 07/08/19 20:28 Pt states HENDERSON improved. Now reg dose of klonopin which she takes at home. States she needs it to calm her before she can go over for the CT. Will given ativan and send over to CT 07/08/19 21:11 CTH read as neg for acute pathology. Pt feels well enough to be discharged to f/ u with her pain MD *DC/Admit/Observation/Transfer Diagnosis at time of Disposition: Headache Qualifiers: Headache type: unspecified Headache chronicity pattern: unspecified pattern Intractability: not intractable Qualified Code(s): R51 - Headache - Discharge Dispostion Disposition: HOME Condition at time of disposition: Improved - Referrals Referrals: Dorcas Kumari MD [Primary Care Provider] - - Patient Instructions Additional Instructions: Jennifer laboratorios y aissatou de CT fueron todos negativos [place] motrin, tylenol o exedrina para el dolor de aissatou y consulte con oliveira mdico especialista en dolor. - Post Discharge Activity
[2019-07-08] MEDS ORDERED: LORazepam 1 MG TABLET PO ONE (20:27)
[2019-07-08] MEDS ORDERED: LORazepam 0.5 MG TABLET ONE (20:57)
[2019-07-08] MEDS ORDERED: KETOROLAC TROMETHAMINE 30 MG/1 ML VIAL ONE (20:57)
== END 2019-07-08 21:36 | disposition home or self-care (01) ==
LOC: JER 14:57
PROC: 3E033NZ Introduction of Analgesics, Hypnotics, Sedatives into Peripheral Vein, Percutaneous Approach (ICD-10-PCS; principal; 2019-07-08)
PROC: 3E0333Z Introduction of Anti-inflammatory into Peripheral Vein, Percutaneous Approach (ICD-10-PCS; 2019-07-08)
PROC: 3E033GC Introduction of Other Therapeutic Substance into Peripheral Vein, Percutaneous Approach (ICD-10-PCS; 2019-07-08)
PROC: 3E033GC Introduction of Other Therapeutic Substance into Peripheral Vein, Percutaneous Approach (ICD-10-PCS; 2019-07-08)
DX: M62.838 Other muscle spasm (principal); R51 Headache; M79.7 Fibromyalgia; M19.90 Unspecified osteoarthritis, unspecified site; Z88.5 Allergy status to narcotic agent
CPT/HCPCS: 36415; 70450-TC; 80053; 84703; 85025; 85610; 99282-25; J0131; J7030

== ENCOUNTER 2019-10-24 08:31 | Emergency (ER) | payer OTHER ==
[2019-10-24 08:36] VITALS: BP 111/70; PULSE 93; TEMP 97.6; BMI 28.6
[2019-10-24] MEDS ORDERED: LIDOCAINE 5% TOPICAL PATCH TP ONE (09:14)
[2019-10-24] MEDS ORDERED: diazePAM 5 MG TABLET PO ONE (09:14)
[2019-10-24] MEDS ORDERED: DEXAMETHASONE SOD PHOSPHATE 10 MG/1 ML VIAL IM ONE (09:14)
[2019-10-24] MEDS ORDERED: KETOROLAC TROMETHAMINE 30 MG/1 ML VIAL IM ONE (09:14)
[2019-10-24] MEDS ORDERED: LIDOCAINE 5% TOPICAL PATCH ONE (09:16)
[2019-10-24] MEDS ORDERED: DEXAMETHASONE SOD PHOSPHATE 10 MG/1 ML VIAL ONE (09:17)
[2019-10-24] MEDS ORDERED: diazePAM 5 MG TABLET ONE (09:17)
[2019-10-24] MEDS ORDERED: KETOROLAC TROMETHAMINE 30 MG/1 ML VIAL ONE (09:17)
--- NOTE | 2019-10-24 09:23 | PDOC ---
History of Present Illness - General Chief Complaint: Pain, Acute Stated Complaint: RT SHOULDER PAIN Time Seen by Provider: 10/24/19 08:43 History Source: Patient Exam Limitations: No Limitations Past History - Travel Traveled outside of the country in the last 30 days: No Close contact w/someone who was outside of country & ill: No - Past Medical History Allergies/Adverse Reactions: Allergies Allergy/AdvReac Type Severity Reaction Status Date / Time morphine Allergy Verified 10/24/19 08:36 Home Medications: Ambulatory Orders Clonazepam 0.5 mg PO ASDIR 09/02/17 Estazolam 2 mg PO ASDIR 09/02/17 Gabapentin 600 mg PO ASDIR 09/02/17 Venlafaxine HCl ER [Effexor Xr -] 150 mg PO DAILY 09/02/17 Naproxen [Naprosyn] 500 mg PO BID 01/05/19 Tramadol HCl 50 mg PO BID 01/05/19 Diclofenac Sodium [Voltaren] 100 gm TP BID #1 gel..gram. 04/25/19 Methocarbamol [Robaxin -] 1,000 mg PO BID #30 tablet 05/03/19 Cyclobenzaprine HCl [Flexeril 10 mg] 10 mg PO HS PRN #10 tablet 06/15/19 Methylprednisolone [Medrol Dose Miguel] 4 mg PO ASDIR #21 tablet 06/15/19 Diazepam [Valium] 2 mg PO HS PRN #7 tablet MDD 1 10/24/19 Methylprednisolone [Medrol Dose Miguel] 4 mg PO ASDIR #21 tablet 10/24/19 COPD: No Thyroid Disease: Yes (Fibromyalgia, osteoarthritis) - Immunization History Immunization Up to Date: Yes - Psycho Social/Smoking Cessation Hx Smoking History: Never smoked Have you smoked in the past 12 months: No Hx Alcohol Use: No Drug/Substance Use Hx: No Substance Use Type: None Review of Systems - Review of Systems Able to Perform ROS?: Yes Comments:: 10/24/19 09:17 CONSTITUTIONAL: Absent: fever, chills, diaphoresis, generalized weakness, malaise, loss of appetite MUSCULOSKELETAL: Present: Right shoulder pain Absent: myalgia, arthralgia, joint swelling SKIN: Absent: rash, itching, pallor NEUROLOGIC: Absent: headache, focal weakness or paresthesias, dizziness, unsteady gait, seizure, mental status changes, bladder or bowel incontinence PSYCHIATRIC: Absent: anxiety, depression, suicidal or homicidal ideation, hallucinations. Is the patient limited Croatian proficient: No *Physical Exam - Vital Signs Last Vital Signs Temp Pulse Resp BP Pulse Ox 97.6 F 93 H 111/70 96 10/24/19 08:33 10/24/19 08:33 10/24/19 08:33 10/24/19 08:33 - Physical Exam 10/24/19 09:18 GENERAL: The patient is awake, alert, and fully oriented, in no acute distress. HEAD: Normal with no signs of trauma. EYES: Pupils equal, round and reactive to light, extraocular movements intact, sclera anicteric, conjunctiva clear. EXTREMITIES: Pt uncooperative for R shoulder exam d/t painNormal range of motion , no edema. NEUROLOGICAL: Normal speech, normal gait. PSYCH: Crying. SKIN: Warm, Dry, normal turgor, no rashes or lesions noted. ED Treatment Course - RADIOLOGY Radiology Studies Ordered: Category Date Time Status SHOULDER-RIGHT [RAD] Stat Radiology 10/24/19 09:15 Ordered Medical Decision Making - Medical Decision Making 10/24/19 09:18 Patient is a 49-year-old female with past medical history of fibromyalgia, arthritis presents to the ER today for right shoulder pain for 3 days. She denies trauma or falling. She states she has been taking naproxen, patches, ultram for the pain with no relief of her symptoms. She states she cannot move her R arm d/t pain. Denies numbness and tingling to the affected extremity. A/P: Right shoulder pain. On exam patient will not let me touch her right shoulder due to pain. She is tearful throughout the exam. Patient jumps when I touch her right arm in general. I tried to passively wrote move her right arm was able to extend it to approximately 30 degrees before patient stops me due to pain We will give Toradol, lidocaine patch, Valium and reevaluate Shoulder x-ray ordered. 10/24/19 11:12 X-ray shows calcification of the biceps tendon consistent with her arthritis Pt now able to range her shoulder to 90 degrees after medication; states she is feeling better. Will give steroid pack and have patient follow up with orthopedics for further evaluation. Return precautions given. I discussed the physical exam findings, ancillary test results and final diagnoses with the patient. I answered all of the patient's questions. The patient was satisfied with the care received and felt comfortable with the discharge plan and treatment plan. The Patient agrees to follow up with the primary care physician/specialist within 24-72 hours. Return precautions were given. Discharge - Discharge Information Problems reviewed: Yes Clinical Impression/Diagnosis: Muscle spasm of shoulder region Shoulder pain, right Qualifiers: Chronicity: acute Qualified Code(s): M25.511 - Pain in right shoulder Condition: Stable Disposition: HOME - Admission No - Follow up/Referral Referrals: Osmel Gilbert MD [Staff Physician] - - Patient Discharge Instructions Patient Printed Discharge Instructions: DI for Shoulder Pain Additional Instructions: You were evaluated for your shoulder pain today. It is most likely due to your arthritis. Please take the steroid pack as directed. You may also take your home pain medications as directed by your previous physician. You may take the Valium at night as needed for spasm. Do not drink or drive after taking this medication as it may make you drowsy. Please follow-up with your orthopedic this week. Return to the ER for worsening pain, lightheadedness, chest pain or if you have any changes in your symptoms. Hoy te evaluaron para el dolor de hombro. Lo ms probable es que se deba a la artritis. Por favor, tome el paquete de esteroides miguel angel se indica. Elisabeth puede alec evelina analgsicos caseros segn las indicaciones de oliveira mdico anterior. Usted puede alec el Valium por la noche segn sea necesario para el espasmo. No germania ni conduzca despus de alec yash medicamento, ya que puede causarle somnolencia. Por favor, rajani un seguimiento con oliveira ortopedia esta semana. Regrese a urgencias para empeorar el dolor, aturdimiento, dolor en el pecho o si tiene algn cambio en los sntomas. Print Language: MACEDONIAN - Post Discharge Activity Work/Back to School Note: Back to Work
== END 2019-10-24 11:24 | disposition home or self-care (01) ==
LOC: JERFT 08:31
PROC: 3E0233Z Introduction of Anti-inflammatory into Muscle, Percutaneous Approach (ICD-10-PCS; principal; 2019-10-24)
PROC: 3E0233Z Introduction of Anti-inflammatory into Muscle, Percutaneous Approach (ICD-10-PCS; 2019-10-24)
DX: M62.838 Other muscle spasm (principal); M13.811 Other specified arthritis, right shoulder; M79.7 Fibromyalgia; Z88.5 Allergy status to narcotic agent
CPT/HCPCS: 73030-TC-RT-FY; 96372; 99282-25; J1100

== ENCOUNTER 2019-12-01 14:42 | Emergency (ER) | payer OTHER ==
[2019-12-01 14:58] VITALS: BP 118/68; PULSE 82; TEMP 98.2; BMI 28.3
[2019-12-01] MEDS ORDERED: DEXAMETHASONE LIQUID 0.5 MG/5 ML PO ONE (16:53)
[2019-12-01] MEDS ORDERED: ACETAMINOPHEN 325 MG TABLET (FP) PO ONE (16:53)
[2019-12-01] MEDS ORDERED: LIDOCAINE 5% TOPICAL PATCH TP ONE (16:53)
[2019-12-01] MEDS ORDERED: KETOROLAC TROMETHAMINE 60 MG/2 ML VIAL IM ONE (16:53)
[2019-12-01] MEDS ORDERED: KETOROLAC TROMETHAMINE 60 MG/2 ML VIAL ONE (17:01)
[2019-12-01] MEDS ORDERED: DEXAMETHASONE SOD PHOSPHATE 10 MG/1 ML VIAL ONE (17:01)
[2019-12-01] MEDS ORDERED: LIDOCAINE 5% TOPICAL PATCH ONE (17:01)
[2019-12-01] MEDS ORDERED: ACETAMINOPHEN 325 MG TABLET (FP) ONE (17:01)
--- NOTE | 2019-12-01 17:05 | PDOC ---
History of Present Illness - General Chief Complaint: Pain Stated Complaint: RT SHOULDER PAIN Time Seen by Provider: 12/01/19 16:36 History Source: Patient Exam Limitations: No Limitations Past History - Travel Traveled outside of the country in the last 30 days: No Close contact w/someone who was outside of country & ill: No - Past Medical History Allergies/Adverse Reactions: Allergies Allergy/AdvReac Type Severity Reaction Status Date / Time morphine Allergy Verified 12/01/19 14:53 Home Medications: Ambulatory Orders Gabapentin 600 mg PO ASDIR 09/02/17 Methocarbamol [Robaxin -] 1,000 mg PO BID #30 tablet 05/03/19 Diazepam [Valium] 5 mg PO BID #10 tablet MDD 2 12/01/19 Methylprednisolone [Medrol Dose Miguel] 4 mg PO ASDIR #21 tablet 12/01/19 Tramadol HCl [Ultram] 50 mg PO ASDIR PRN 12/01/19 COPD: No Thyroid Disease: Yes (Fibromyalgia, osteoarthritis) - Immunization History Immunization Up to Date: Yes - Psycho Social/Smoking Cessation Hx Smoking History: Never smoked Have you smoked in the past 12 months: No Hx Alcohol Use: No Drug/Substance Use Hx: No Substance Use Type: None Review of Systems - Review of Systems Able to Perform ROS?: Yes Comments:: 12/01/19 17:41 CONSTITUTIONAL: Absent: fever, chills, diaphoresis, generalized weakness, malaise, loss of appetite HEENT: Absent: rhinorrhea, nasal congestion, throat pain, throat swelling, difficulty swallowing, mouth swelling, ear pain, eye pain, visual Changes CARDIOVASCULAR: Absent: chest pain, loss of consciousness, palpitations, irregular heart rate, peripheral edema RESPIRATORY: Absent: cough, shortness of breath, dyspnea with exertion, orthopnea, wheezing, stridor, hemoptysis GASTROINTESTINAL: Absent: abdominal pain, abdominal distension, nausea, vomiting, diarrhea, constipation, melena, hematochezia GENITOURINARY: Absent: dysuria, frequency, urgency, hesitancy, hematuria, flank pain, genital pain MUSCULOSKELETAL: Present: Right shoulder and neck pain. Absent: myalgia, arthralgia, joint swelling SKIN: Absent: rash, itching, pallor HEMATOLOGIC/IMMUNOLOGIC: Absent: easy bleeding, easy bruising, lymphadenopathy, frequent infections ENDOCRINE: Absent: unexplained weight gain, unexplained weight loss, heat intolerance, cold intolerance NEUROLOGIC: Absent: headache, focal weakness or paresthesias, dizziness, unsteady gait, seizure, mental status changes, bladder or bowel incontinence PSYCHIATRIC: Absent: anxiety, depression, suicidal or homicidal ideation, hallucinations. Is the patient limited Welsh proficient: No *Physical Exam - Vital Signs Last Vital Signs Temp Pulse Resp BP Pulse Ox 98.2 F 82 18 118/68 98 12/01/19 14:53 12/01/19 14:53 12/01/19 14:53 12/01/19 14:53 12/01/19 14:53 - Physical Exam 12/01/19 17:41 GENERAL: Well developed, well nourished. Awake and alert. Moderate distress d/t pain. NECK: Supple. Full ROM. MUSCULOSKELETAL Normal range of motion at all joints. No bony deformities or tenderness. No CVA tenderness. EXTREMITIES: TTP of the R shoulder, R cervical spine with (+) spasm along the paraspinous muscles. Pain internal rotation of the R shoulder. (+) vidhi maneuver. Pt able to move the arm to 90 degrees without pian. No cyanosis. No clubbing. No edema. No calf tenderness. SKIN: Warm and dry. Normal capillary refill. No rashes. No jaundice. NEUROLOGICAL: Alert, awake, appropriate. Cranial nerves 2-12 intact. No deficits to light touch and temperature in face, upper extremities and lower extremities. No motor deficits in the in face, upper extremities and lower extremities. Normoreflexic in the upper and lower extremities. Normal speech. Toes are down- going bilaterally. Gait is normal without ataxia. PSYCHIATRIC: Cooperative. Good eye contact. Appropriate mood and affect. Medical Decision Making - Medical Decision Making 12/01/19 17:06 Patient is a 49-year-old female with past medical history of fibromyalgia, arthritis presents to the ER today for right shoulder pain for 7 days. She denies trauma or falling. She states she has been taking naproxen, patches, ultram for the pain with no relief of her symptoms. She states her neck, upper back, upper chest wall and L arm all hurt d/t the pain. Denies numbness and tingling to the affected extremity. A/P: Right shoulder pain/cervical radiculopathy On exam tenderness palpation of the right neck paraspinous muscles with palpable spasm. Positive Spurling maneuver consistent with cervical radiculopathy. Patient is able to move her arm to 90 degrees today without assistance or pain. Unable to internally rotate though due to pain. We will give Toradol, tylenol, lidocaine patch and Decadron Will give steroid pack and have patient follow up with neurology for further evaluation. Return precautions given. I discussed the physical exam findings, ancillary test results and final diagnoses with the patient. I answered all of the patient's questions. The patient was satisfied with the care received and felt comfortable with the discharge plan and treatment plan. The Patient agrees to follow up with the primary care physician/specialist within 24-72 hours. Return precautions were given. Discharge - Discharge Information Problems reviewed: Yes Clinical Impression/Diagnosis: Chronic pain disorder Shoulder pain, right Qualifiers: Chronicity: acute Qualified Code(s): M25.511 - Pain in right shoulder Condition: Stable Disposition: HOME - Admission No - Additional Discharge Information Prescriptions: Diazepam [Valium] 5 mg PO BID #10 tablet MDD 2 Methylprednisolone [Medrol Dose Miguel] 4 mg PO ASDIR #21 tablet - Follow up/Referral Referrals: Nguyễn Velazquez MD [Staff Physician] - - Patient Discharge Instructions Patient Printed Discharge Instructions: DI for Cervical Radiculopathy Additional Instructions: You were evaluated for your shoulder pain. It is most likely coming from your neck from the herniated disks. This is called cervical radiculopathy. Please take the steroids starting tomorrow as directed to help with your pain. You may also take the Valium as a muscle relaxer. Do not take the muscle relaxer you have at home called Zanaflex while taking this medication. Do not drink or drive after taking the muscle relaxer as it may make you drowsy. Please follow-up with Dr. Velazquez this week. Return to the ER for any new or worsening symptoms Te evaluaron para el dolor de hombro. Lo ms probable es que provenga del caitlyn de la hernia de disco. [place] se denomina radiculopata cervical. Por favor, tome los esteroides a partir de maana miguel angel se indica para ayudar con oliveira dolor. Tambin puede alec el Valium miguel angel un relajante muscular. No tome el relajante muscular que tiene en casa llamado Zanaflex mientras gisele yash medicamento. No germania ni conduzca despus de alec el relajante muscular, ya que puede causarle somnolencia. Por favor, siga con el Caroline Regreso a Urgencias para cualquier sntoma nuevo o que empeore Print Language: CHINESE - Post Discharge Activity Work/Back to School Note: Back to Work
== END 2019-12-01 17:43 | disposition home or self-care (01) ==
LOC: JERFT 14:42
DX: M54.12 Radiculopathy, cervical region (principal); M79.7 Fibromyalgia; M19.90 Unspecified osteoarthritis, unspecified site
CPT/HCPCS: 99284-25

== ENCOUNTER 2020-04-23 12:32 | Emergency (ER) | payer OTHER ==
[2020-04-23 12:42] VITALS: BP 132/74; PULSE 88; TEMP 98.3; BMI 24.0
[2020-04-23] MEDS ORDERED: KETOROLAC TROMETHAMINE 30 MG/1 ML VIAL IM ONE (13:00)
[2020-04-23] MEDS ORDERED: LIDOCAINE 5% TOPICAL PATCH TP ONE (13:00)
--- NOTE | 2020-04-23 13:08 | PDOC ---
History of Present Illness - General Chief Complaint: Pain Stated Complaint: SHOULDER/BACK/NECK PAIN Time Seen by Provider: 04/23/20 12:39 History Source: Patient Exam Limitations: No Limitations - History of Present Illness Initial Comments: 04/23/20 13:00 Patient is a 50-year-old female who has a history of polyarthralgia, fibromyalgia and arthritis who presents to the ED with complaint of right neck, shoulder pain that she has had for chronically but began to increase since yesterday. She took a Zanaflex this morning with little relief. She took diclofenac yesterday and states this has not been helping. She denies any numbness or tingling. She denies any known injury. She does state to getting episodes like this for which she comes to the ED and gets injections for. She does see a neurologist for the symptoms and is managed by him for these problems. Past History - Medical History Allergies/Adverse Reactions: Allergies Allergy/AdvReac Type Severity Reaction Status Date / Time morphine Allergy Verified 04/23/20 12:39 Home Medications: Ambulatory Orders Gabapentin 600 mg PO ASDIR 09/02/17 Methocarbamol [Robaxin -] 1,000 mg PO BID #30 tablet 05/03/19 Diazepam [Valium] 5 mg PO BID #10 tablet MDD 2 12/01/19 Methylprednisolone [Medrol Dose Miguel] 4 mg PO ASDIR #21 tablet 12/01/19 Tramadol HCl [Ultram] 50 mg PO ASDIR PRN 12/01/19 Lidocaine 5% Patch [Lidoderm Patch -] 1 patch TP DAILY #15 patch 04/23/20 COPD: No Thyroid Disease: Yes (Fibromyalgia, osteoarthritis) - Immunization History Immunization Up to Date: Yes - Psycho-Social/Smoking History Smoking History: Never smoked Have you smoked in the past 12 months: No - Substance Abuse Hx (Audit-C & DAST Scrn) How often the patient has a drink containing alcohol: Never Score: In Men: 4 or > Positive; In Women: 3 or > Positive: 0 Screen Result (Pos requires Nsg. Audit-10AR): Negative In the last yr the pt used illegal drug/Rx for NonMed reason: No Score: Yes response is considered Positive: 0 Screen Result (Positive result requires Nsg. DAST-10): Negative Review of Systems - Review of Systems Comments:: 04/23/20 13:03 - Review of Systems Able to Perform ROS?: Yes Constitutional: No: Fever, Chills, Loss of Appetite, Night Sweats, Weakness HEENTM: No: Eye Pain, Vision changes, Ear Pain, Throat Pain, Throat Swelling, Mouth Pain, Difficulty Swallowing Respiratory: No: Cough, Shortness of Breath, Wheezing, Sputum Production Cardiac (ROS): No: Chest Pain, Chest Tightness, Palpitations, Irregular Heart Beat, Edema ABD/GI: No: Nausea, Vomiting, Abdominal Pain, Diarrhea : No Dysuria, No Hematuria, No Frequency, No Urgency Musculoskeletal: No: Muscle Weakness, positive: Muscle Pain, Back Pain, Joint Pain, Neck Pain Integumentary: No: Lesions, Rash Neurological: No: Headache, Numbness, Tingling, Weakness, Speech Difficulties *Physical Exam - Vital Signs Last Vital Signs Temp Pulse Resp BP Pulse Ox 98.3 F 88 18 132/74 100 04/23/20 12:40 04/23/20 12:40 04/23/20 12:40 04/23/20 12:40 04/23/20 12:40 - Physical Exam 04/23/20 13:04 - Physical Exam General Appearance: Nourished, Appropriately Dressed, No Distress HEENT: EOMI, Normal Voice, Hearing Grossly Normal Neck: Supple, No Lymphadenopathy (R), No Lymphadenopathy (L), No Rigidity, No Decreased range of motion Respiratory/Chest: Lungs Clear, Normal Breath Sounds. No Respiratory Distress, No Accessory Muscle Use Cardiovascular: Regular Rhythm, Regular Rate, S1, S2 Gastrointestinal/Abdominal: Normal Bowel Sounds, Soft. Non-tender, No Guarding, No Rebound, No Rigidity Musculoskeletal: Normal Inspection. No Decreased Range of Motion; R shoulder with tenderness to palpation to the trapezius muscle, right neck, right upper arm. Sensation intact distally. Strengthen 5/5 b/l UE, brisk capillary refill distally, Pt very sensitive to palpation anywhere to the right neck, right shoulder and right upper arm. Forward flexion to 90 degrees actively, 130 degrees passively Extremity: Normal Capillary Refill, Normal Inspection Integumentary: Normal Color, Dry. No Rash Neurologic: photogrammetric stereo compiler II-XII NML intact, Fully Oriented, Alert, Normal Mood/Affect, Normal Response Medical Decision Making - Medical Decision Making 04/23/20 13:08 Assessment: Pt is a 50 y/o female right neck, right shoulder, right upper arm pain which is chronic with acute exaceration. Plan: -Toradol IM given today (has not taken diclofenac today) -Lidoderm patch placed -Patient has been made aware that she must follow-up with her neurologist for further evaluation and treatment. Lidoderm patches were sent to her pharmacy so she can continue to use them until she follows up with her doctor. She understands and agrees with this treatment plan and she is stable for discharge. Discharge - Discharge Information Problems reviewed: Yes Clinical Impression/Diagnosis: Right shoulder pain Qualifiers: Chronicity: acute Qualified Code(s): M25.511 - Pain in right shoulder Condition: Stable Disposition: HOME - Additional Discharge Information Prescriptions: Lidocaine 5% Patch [Lidoderm Patch -] 1 patch TP DAILY #15 patch - Follow up/Referral - Patient Discharge Instructions Patient Printed Discharge Instructions: DI for Chronic Pain -- Adult, DI for Shoulder Pain Additional Instructions: Get plenty of rest and do gentle range of motion exercises. Use the Lidoderm patches as prescribed to help with pain. Continue to take your medications as prescribed. Do not use your diclofenac medication until tomorrow as you were given a strong anti-inflammatory today. Follow-up with your neurologist for further evaluation and treatment. Descanse mucho y mike ejercicios suaves de rango de movimiento. Use los parches de Lidoderm segn lo prescrito para ayudar con el dolor. Contine tomando evelina medicamentos segn lo prescrito. No use oliveira medicamento diclofenaco hasta maana, ya que le dieron un briana antiinflamatorio hoy. Mike un seguimiento con oilveira neurlogo para rodríguez evaluacin y tratamiento adicionales. Print Language: LITHUANIAN - Post Discharge Activity
[2020-04-23] MEDS ORDERED: LIDOCAINE PATCH REMOVAL MC SCH (22:00)
== END 2020-04-23 13:27 | disposition home or self-care (01) ==
LOC: JERFT 12:32
PROC: 3E023GC Introduction of Other Therapeutic Substance into Muscle, Percutaneous Approach (ICD-10-PCS; principal; 2020-04-23)
DX: M25.511 Pain in right shoulder (principal)
CPT/HCPCS: 99284-25

== ENCOUNTER 2021-03-11 10:05 | Emergency (ER) | payer OTHER ==
[2021-03-11 10:12] VITALS: BP 136/83; PULSE 92; TEMP 98; BMI 32.5
[2021-03-11] MEDS ORDERED: KETOROLAC TROMETHAMINE 30 MG/1 ML VIAL IM ONE (10:52)
[2021-03-11] MEDS ORDERED: KETOROLAC TROMETHAMINE 30 MG/1 ML VIAL ONE (11:04)
== END 2021-03-11 11:31 | disposition home or self-care (01) ==
LOC: JER 10:05
PROC: 3E0233Z Introduction of Anti-inflammatory into Muscle, Percutaneous Approach (ICD-10-PCS; principal; 2021-03-11)
DX: M79.642 Pain in left hand (principal)
CPT/HCPCS: 96372; 99284-25

== ENCOUNTER 2022-08-09 10:10 | Emergency (ER) | payer OTHER ==
[2022-08-09 10:25] VITALS: BMI 41.5
[2022-08-09 11:44] VITALS: BP 133/74; PULSE 94; RESP 18; TEMP 98.2
[2022-08-09] MEDS ORDERED: SODIUM CHLORIDE 0.9% 500 ML INFUS.BAG IV ONE (11:48)
[2022-08-09 12:15] LABS: INR 1.06 (0.83-1.09); PROTHROMBIN TIME (PATIENT) 12.2 SEC (9.7-13.0)
[2022-08-09 12:18] LABS: ACTIVATED PTT 35.4 SECONDS (25.2-36.5)
[2022-08-09 12:22] LABS: CHLORIDE 103 mmol/L (98-107); SODIUM 142 mmol/L (136-145)
[2022-08-09 12:23] LABS: CALCIUM 9.2 mg/dL (8.5-10.1)
[2022-08-09 12:25] LABS: ALBUMIN 3.4 g/dl (3.4-5.0); ANION GAP 8 MMOL/L (8-16); BLOOD UREA NITROGEN 6.8 mg/dL (7-18); CO2 31 mmol/L (21-32); GLUCOSE,RANDOM 102 mg/dL (74-106); MAGNESIUM 2.1 mg/dL (1.8-2.4)
[2022-08-09 12:27] LABS: CREATININE 0.8 mg/dL (0.55-1.3); SGOT/AST 26 U/L (15-37); SGPT/ALT 39 U/L (13-61)
[2022-08-09 12:29] LABS: BILIRUBIN,TOTAL 0.2 mg/dL (0.2-1)
[2022-08-09 12:30] LABS: TOT PROT 7.3 g/dl (6.4-8.2)
[2022-08-09 12:31] LABS: ALK PHOS 137 U/L (45-117)
[2022-08-09 12:33] LABS: N-TERMINAL BNP 96.4 pg/ml (5-125)
[2022-08-09 12:39] LABS: BASO % 0.3 % (0-2.0); EOS % 3.3 % (0-4.5); HEMATOCRIT 38.3 % (32.4-45.2); HEMOGLOBIN 12.6 GM/dL (10.7-15.3); MCH 26.9 pg (25.7-33.7); MEAN CELL VOLUME 81.5 fl (80-96); MEAN PLT VOLUME 8.8 fl (7.5-11.1); MONO % 10.6 % (3.8-10.2); NEUT % 64.8 % (42.8-82.8); PLATELET COUNT 276 10^3/uL (134-434); WHITE BLOOD COUNT 7.5 K/mm3 (4.0-10.0)
[2022-08-09 14:52] LABS: PH,URINE 7.5 (5.0-8.0); URINE APPEARANCE CLEAR; URINE BILIRUBIN NEGATIVE (NEGATIVE); URINE COLOR YELLOW; URINE GLUCOSE (UA) NEGATIVE (NEGATIVE); URINE KETONE NEGATIVE (NEGATIVE); URINE LEUK ESTERASE NEGATIVE (NEGATIVE); URINE NITRITE NEGATIVE (NEGATIVE); URINE PROTEIN NEGATIVE (NEGATIVE); URINE UROBILINOGEN 0.2 mg/dL (0.2-1.0)
== END 2022-08-09 15:55 | disposition home or self-care (01) ==
LOC: JER 10:10
DX: R00.2 Palpitations (principal)
CPT/HCPCS: 36415; 71046-TC-FY; 80053; 81003; 83735; 83880; 84439; 84443; 84484; 85025; 85610; 85730; 87086; 87186; 93005; 93010; 99285-25

== ENCOUNTER 2022-08-21 21:48 | Observation (INO) | payer OTHER ==
[2022-08-21 21:58] VITALS: BMI 42.9
[2022-08-22 02:40] LABS: BASO % 0.3 % (0-2.0); EOS % 3.6 % (0-4.5); HEMATOCRIT 36.8 % (32.4-45.2); HEMOGLOBIN 12.1 GM/dL (10.7-15.3); LYMPH % 30.7 % (8-40); MCH 26.8 pg (25.7-33.7); MEAN CELL VOLUME 81.4 fl (80-96); MEAN PLT VOLUME 8.4 fl (7.5-11.1); MONO % 9.1 % (3.8-10.2); NEUT % 56.3 % (42.8-82.8); PLATELET COUNT 269 10^3/uL (134-434); RBC 4.52 M/mm3 (3.60-5.2); RDW 18.3 % (11.6-15.6); WHITE BLOOD COUNT 7.8 K/mm3 (4.0-10.0)
[2022-08-22 02:47] LABS: INR 1.03 (0.83-1.09); PROTHROMBIN TIME (PATIENT) 11.8 SEC (9.7-13.0)
[2022-08-22 02:49] LABS: ACTIVATED PTT 35.4 SECONDS (25.2-36.5)
[2022-08-22 03:00] LABS: CALCIUM 8.8 mg/dL (8.5-10.1)
[2022-08-22 03:01] LABS: ALBUMIN 3.4 g/dl (3.4-5.0); BLOOD UREA NITROGEN 7.4 mg/dL (7-18); MAGNESIUM 2.2 mg/dL (1.8-2.4)
[2022-08-22 03:03] LABS: CREATININE 0.7 mg/dL (0.55-1.3); PHOSPHOROUS 3.5 mg/dL (2.5-4.9)
[2022-08-22 03:05] LABS: BILIRUBIN,TOTAL 0.2 mg/dL (0.2-1); TOT PROT 7.3 g/dl (6.4-8.2)
[2022-08-22 03:09] LABS: N-TERMINAL BNP 45.3 pg/ml (5-125)
[2022-08-23 08:10] LABS: BASO % 0.3 % (0-2.0); EOS % 3.4 % (0-4.5); HEMATOCRIT 36.7 % (32.4-45.2); LYMPH % 30.4 % (8-40); MCH 26.5 pg (25.7-33.7); MCHC 32.8 g/dl (32.0-36.0); MEAN CELL VOLUME 80.8 fl (80-96); MEAN PLT VOLUME 8.5 fl (7.5-11.1); MONO % 10.7 % (3.8-10.2); NEUT % 55.2 % (42.8-82.8); PLATELET COUNT 269 10^3/uL (134-434); RBC 4.54 M/mm3 (3.60-5.2); RDW 18.2 % (11.6-15.6); WHITE BLOOD COUNT 6.3 K/mm3 (4.0-10.0)
[2022-08-23 08:19] LABS: CALCIUM 8.9 mg/dL (8.5-10.1)
[2022-08-23 08:20] LABS: BLOOD UREA NITROGEN 9.2 mg/dL (7-18); MAGNESIUM 2.3 mg/dL (1.8-2.4)
[2022-08-23 08:23] LABS: CREATININE 0.6 mg/dL (0.55-1.3); PHOSPHOROUS 5.2 mg/dL (2.5-4.9)
[2022-08-23] MEDS ORDERED: ENOXAPARIN NA (PORCINE) 40 MG/0.4 ML DISP.SYRIN SQ SCH (10:00)
[2022-08-23 10:56] VITALS: BP 117/67; PULSE 87; RESP 16; TEMP 98.8
== END 2022-08-23 15:37 | disposition home or self-care (01) ==
LOC: JER 21:48 → JERBED 08-22 05:50 → J4W 08-22 17:38
PROVIDERS: ADMIT Internal Medicine
PROC: 3E023GC Introduction of Other Therapeutic Substance into Muscle, Percutaneous Approach (ICD-10-PCS; principal; 2022-08-22)
DX: R00.2 Palpitations (principal); R79.9 Abnormal finding of blood chemistry, unspecified; M79.7 Fibromyalgia; F41.8 Other specified anxiety disorders; Z88.5 Allergy status to narcotic agent; Z99.81 Dependence on supplemental oxygen; E66.01 Morbid (severe) obesity due to excess calories; Z68.41 Body mass index [BMI] 40.0-44.9, adult
CPT/HCPCS: 36415; 71046-TC-FY; 71275-TC; 80048; 80053; 82550; 83735; 83880; 84100; 84436; 84443; 84484; 85025; 85379; 85610; 85730; 93005; 93010; 96372; 99285-25; C9803-CS; G0378; U0003; U0005

== ENCOUNTER 2023-09-06 15:17 | Observation (INO) | payer OTHER ==
[2023-09-06] MEDS ORDERED: LIDOCAINE 5% TOPICAL PATCH TP ONE (16:24)
[2023-09-06] MEDS ORDERED: ACETAMINOPHEN 325 MG TABLET (FP) PO ONE (16:24)
[2023-09-06] MEDS ORDERED: LIDOCAINE 4% PATCH TP ONE ×2 (16:41→16:43)
[2023-09-06] MEDS ORDERED: ACETAMINOPHEN 325 MG TABLET (FP) ONE (16:43)
[2023-09-06] MEDS ORDERED: KETOROLAC TROMETHAMINE 30 MG/1 ML VIAL IM ONE (18:03)
[2023-09-06] MEDS ORDERED: KETOROLAC TROMETHAMINE 30 MG/1 ML VIAL ONE (18:08)
[2023-09-06] MEDS ORDERED: METHOCARBAMOL 750 MG TAB PO ONE (19:28)
[2023-09-06] MEDS ORDERED: METHOCARBAMOL 500 MG TABLET ONE (19:35)
[2023-09-06] MEDS ORDERED: LIDOCAINE PATCH REMOVAL MC SCH (22:00)
[2023-09-06 22:41] LABS: BASO % 0.4 % (0-2.0); EOS % 0.2 % (0-4.5); HEMATOCRIT 40.8 % (32.4-45.2); HEMOGLOBIN 13.3 GM/dL (10.7-15.3); LYMPH % 30.3 % (8-40); MCH 29.9 pg (25.7-33.7); MCHC 32.6 g/dl (32.0-36.0); MEAN CELL VOLUME 91.7 fl (80-96); MEAN PLT VOLUME 8.8 fl (7.5-11.1); MONO % 9.6 % (3.8-10.2); NEUT % 59.5 % (42.8-82.8); PLATELET COUNT 192 10^3/uL (134-434); RBC 4.45 M/mm3 (3.60-5.2); RDW 14.8 % (11.6-15.6); WHITE BLOOD COUNT 6.6 K/mm3 (4.0-10.0)
[2023-09-06 22:58] LABS: POTASSIUM 3.7 mmol/L (3.5-5.1)
[2023-09-06 22:59] LABS: ALBUMIN 3.4 g/dl (3.4-5.0); BLOOD UREA NITROGEN 10.4 mg/dL (7-18); CALCIUM 8.8 mg/dL (8.5-10.1)
[2023-09-06 23:03] LABS: CREATININE 0.8 mg/dL (0.55-1.3)
[2023-09-06 23:04] LABS: BILIRUBIN,TOTAL 0.4 mg/dL (0.2-1); TOT PROT 6.7 g/dl (6.4-8.2)
[2023-09-07] MEDS ORDERED: ACETAMINOPHEN 1000 MG/100 ML BAG IVPB ONE (01:22)
[2023-09-07] MEDS ORDERED: ACETAMINOPHEN 1000 MG/100 ML BAG IVPB PRN (01:23)
[2023-09-07] MEDS ORDERED: ACETAMINOPHEN INJECTION 100 ML IVPB ONE (01:57)
[2023-09-07] MEDS ORDERED: POLYETHYLENE GLYCOL (HEALTHYLAX) 3350 17 GM PACKET PO PRN (03:35)
[2023-09-07 05:12] VITALS: BMI 25.9
[2023-09-07] MEDS ORDERED: clonazePAM 0.5 MG TABLET PO PRN (08:10)
[2023-09-07] MEDS: ENOXAPARIN NA (PORCINE) 40 MG/0.4 ML DISP.SYRIN SQ SCH (09:18)
[2023-09-07] MEDS: FAMOTIDINE 20 MG TABLET PO SCH (09:19)
[2023-09-07] MEDS: FLUoxetine HCL 20 MG CAPSULE PO SCH (09:19)
[2023-09-07] MEDS: lamoTRIgine 100 MG TABLET PO SCH (09:19)
[2023-09-07] MEDS: LIDOCAINE 4% PATCH TP SCH (09:19)
[2023-09-07] MEDS: BACLOFEN 10 MG TABLET (FP) PO SCH (09:20)
[2023-09-07] MEDS: TOPIRAMATE 25 MG TABLET PO SCH (09:20)
[2023-09-07 09:25] LABS: HEMATOCRIT 39.9 % (32.4-45.2); HEMOGLOBIN 13.5 GM/dL (10.7-15.3); MCH 30.8 pg (25.7-33.7); MCHC 33.9 g/dl (32.0-36.0); MEAN CELL VOLUME 90.9 fl (80-96); MEAN PLT VOLUME 9.1 fl (7.5-11.1); PLATELET COUNT 196 10^3/uL (134-434); RBC 4.39 M/mm3 (3.60-5.2); RDW 14.5 % (11.6-15.6); WHITE BLOOD COUNT 5.6 K/mm3 (4.0-10.0)
[2023-09-07 09:44] LABS: POTASSIUM 3.5 mmol/L (3.5-5.1)
[2023-09-07 09:50] LABS: CALCIUM 8.7 mg/dL (8.5-10.1)
[2023-09-07 09:51] LABS: ALBUMIN 3.5 g/dl (3.4-5.0); BLOOD UREA NITROGEN 10.6 mg/dL (7-18); MAGNESIUM 2.2 mg/dL (1.8-2.4)
[2023-09-07 09:53] LABS: PHOSPHOROUS 4.6 mg/dL (2.5-4.9)
[2023-09-07 09:54] LABS: BILIRUBIN,TOTAL 0.5 mg/dL (0.2-1); CREATININE 0.6 mg/dL (0.55-1.3)
[2023-09-07 09:55] LABS: TOT PROT 6.8 g/dl (6.4-8.2)
[2023-09-07] MEDS ORDERED: GABAPENTIN 300 MG CAPSULE PO SCH (10:00)
[2023-09-07] MEDS: metoPROLOL SUCCINATE 25 MG TAB.SR.24H (FP) PO SCH (10:21)
[2023-09-07] MEDS ORDERED: oxyCODONE HCL 5 MG TABLET PO PRN (11:28)
[2023-09-07] MEDS: ACETAMINOPHEN 1000 MG/100 ML BAG IVPB SCH ×2 (13:23→17:25)
[2023-09-07] MEDS: GABAPENTIN 300 MG CAPSULE PO SCH (21:51)
[2023-09-07] MEDS ORDERED: MIRTAZAPINE 15 MG TABLET (FP) PO SCH (22:00)
[2023-09-07] MEDS ORDERED: LIDOCAINE PATCH REMOVAL MC SCH (22:00)
[2023-09-08] MEDS: ACETAMINOPHEN 1000 MG/100 ML BAG IVPB SCH ×3 (06:19→11:42)
[2023-09-08 09:29] LABS: BASO % 0.1 % (0-2.0); EOS % 0.4 % (0-4.5); HEMATOCRIT 40.4 % (32.4-45.2); HEMOGLOBIN 14.2 GM/dL (10.7-15.3); LYMPH % 35.3 % (8-40); MCH 31.5 pg (25.7-33.7); MCHC 35.1 g/dl (32.0-36.0); MEAN CELL VOLUME 89.9 fl (80-96); MEAN PLT VOLUME 8.9 fl (7.5-11.1); MONO % 10.2 % (3.8-10.2); PLATELET COUNT 201 10^3/uL (134-434); RBC 4.49 M/mm3 (3.60-5.2); RDW 14.7 % (11.6-15.6); WHITE BLOOD COUNT 5.4 K/mm3 (4.0-10.0)
[2023-09-08 09:44] LABS: POTASSIUM 4.5 mmol/L (3.5-5.1)
[2023-09-08 09:56] LABS: CALCIUM 9.5 mg/dL (8.5-10.1)
[2023-09-08 09:57] LABS: ALBUMIN 3.5 g/dl (3.4-5.0); BLOOD UREA NITROGEN 9.2 mg/dL (7-18); CREATININE 0.7 mg/dL (0.55-1.3); MAGNESIUM 2.5 mg/dL (1.8-2.4)
[2023-09-08 09:59] LABS: BILIRUBIN,TOTAL 0.4 mg/dL (0.2-1); TOT PROT 6.9 g/dl (6.4-8.2)
[2023-09-08] MEDS: FAMOTIDINE 20 MG TABLET PO SCH (10:04)
[2023-09-08] MEDS: metoPROLOL SUCCINATE 25 MG TAB.SR.24H (FP) PO SCH (10:04)
[2023-09-08] MEDS: BACLOFEN 10 MG TABLET (FP) PO SCH (10:04)
[2023-09-08] MEDS: lamoTRIgine 100 MG TABLET PO SCH (10:04)
[2023-09-08] MEDS: GABAPENTIN 300 MG CAPSULE PO SCH (10:04)
[2023-09-08] MEDS: FLUoxetine HCL 20 MG CAPSULE PO SCH (10:04)
[2023-09-08] MEDS: ENOXAPARIN NA (PORCINE) 40 MG/0.4 ML DISP.SYRIN SQ SCH (10:05)
[2023-09-08] MEDS: LIDOCAINE 4% PATCH TP SCH (10:05)
[2023-09-08] MEDS: TOPIRAMATE 25 MG TABLET PO SCH (10:05)
[2023-09-08 15:12] VITALS: BP 102/65; PULSE 60; RESP 16; TEMP 97.9
== END 2023-09-08 18:36 | disposition home or self-care (01) ==
LOC: JER 15:17 → JERBED 19:32 → J8W 09-07 03:17
PROVIDERS: ADMIT Internal Medicine; ATTEND Nurse Practitioner Family
PROC: 3E033NZ Introduction of Analgesics, Hypnotics, Sedatives into Peripheral Vein, Percutaneous Approach (ICD-10-PCS; principal; 2023-09-06)
PROC: 3E023GC Introduction of Other Therapeutic Substance into Muscle, Percutaneous Approach (ICD-10-PCS; 2023-09-06)
PROC: 3E0233Z Introduction of Anti-inflammatory into Muscle, Percutaneous Approach (ICD-10-PCS; 2023-09-06)
DX: M54.59 Other low back pain (principal); M79.7 Fibromyalgia; F41.8 Other specified anxiety disorders; G89.29 Other chronic pain; M13.0 Polyarthritis, unspecified; Z98.84 Bariatric surgery status; R32 Unspecified urinary incontinence; Z29.89 Encounter for other specified prophylactic measures; R26.2 Difficulty in walking, not elsewhere classified; Z88.6 Allergy status to analgesic agent
CPT/HCPCS: 36415; 80053; 83735; 84100; 84703; 85025; 85027; 93005; 93010; 96372; 96374; 96376; 97116-GP; 97161-GP; 99285-25; G0378; J0475

== ENCOUNTER 2023-11-12 12:03 | Emergency (ER) | payer OTHER ==
[2023-11-12] MEDS ORDERED: METHOCARBAMOL 500 MG TABLET PO ONE (13:15)
[2023-11-12] MEDS ORDERED: KETOROLAC TROMETHAMINE 30 MG/1 ML VIAL IVPUSH ONE (13:15)
[2023-11-12] MEDS ORDERED: METHOCARBAMOL 500 MG TABLET ONE (13:20)
[2023-11-12] MEDS ORDERED: KETOROLAC TROMETHAMINE 30 MG/1 ML VIAL ONE (13:21)
[2023-11-12 13:47] LABS: BASO % 0.1 % (0-2.0); EOS % 0.2 % (0-4.5); HEMATOCRIT 43.2 % (32.4-45.2); HEMOGLOBIN 14.6 GM/dL (10.7-15.3); LYMPH % 29.9 % (8-40); MCH 31.4 pg (25.7-33.7); MCHC 33.8 g/dl (32.0-36.0); MEAN CELL VOLUME 92.9 fl (80-96); MEAN PLT VOLUME 8.8 fl (7.5-11.1); MONO % 9.9 % (3.8-10.2); NEUT % 59.9 % (42.8-82.8); PLATELET COUNT 179 10^3/uL (134-434); RBC 4.65 M/mm3 (3.60-5.2)
[2023-11-12 14:12] LABS: POTASSIUM 4.1 mmol/L (3.5-5.1)
[2023-11-12 14:13] LABS: CALCIUM 9.5 mg/dL (8.5-10.1)
[2023-11-12 14:14] LABS: ALBUMIN 3.3 g/dl (3.4-5.0); BLOOD UREA NITROGEN 7.9 mg/dL (7-18)
[2023-11-12 14:17] LABS: CREATININE 0.7 mg/dL (0.55-1.3)
[2023-11-12 14:19] LABS: BILIRUBIN,TOTAL 0.4 mg/dL (0.2-1); TOT PROT 7.1 g/dl (6.4-8.2)
[2023-11-12 14:32] VITALS: PULSE 64; BMI 25.6
[2023-11-12 15:47] VITALS: BP 100/56; RESP 20; TEMP 98.2
== END 2023-11-12 15:47 | disposition home or self-care (01) ==
LOC: JER 12:03
PROC: 3E033NZ Introduction of Analgesics, Hypnotics, Sedatives into Peripheral Vein, Percutaneous Approach (ICD-10-PCS; principal; 2023-11-12)
DX: R06.02 Shortness of breath (principal); R07.89 Other chest pain; M54.6 Pain in thoracic spine; Z20.822 Contact with and (suspected) exposure to COVID-19
CPT/HCPCS: 0241U-QW; 36415; 71045-TC-FY; 80053; 84484; 85025; 85379; 93005; 93010; 96374; 99285-25

== ENCOUNTER 2024-04-29 19:03 | Emergency (ER) | payer OTHER ==
[2024-04-29 19:18] VITALS: BP 121/74; PULSE 74; RESP 18; TEMP 98.7; BMI 25.4
[2024-04-29 21:47] LABS: THROAT:GRP A STREP NOT DETECTED (NOTDETECTED)
[2024-04-29] MEDS ORDERED: KETOROLAC TROMETHAMINE 15 MG/ML VIAL ONE (21:53)
[2024-04-29] MEDS ORDERED: DEXAMETHASONE SOD PHOSPHATE 10 MG/1 ML VIAL ONE (21:53)
[2024-04-29 21:58] LABS: BASO % 0.4 % (0-2.0); EOS % 0.6 % (0-4.5); HEMATOCRIT 40.8 % (32.4-45.2); HEMOGLOBIN 14.1 GM/dL (10.7-15.3); LYMPH % 29.8 % (8-40); MCH 31.8 pg (25.7-33.7); MCHC 34.5 g/dl (32.0-36.0); MEAN CELL VOLUME 92.2 fl (80-96); MEAN PLT VOLUME 8.3 fl (7.5-11.1); MONO % 8.4 % (3.8-10.2); NEUT % 60.8 % (42.8-82.8); PLATELET COUNT 226 10^3/uL (134-434); RBC 4.43 M/mm3 (3.60-5.2); RDW 14.1 % (11.6-15.6); WHITE BLOOD COUNT 7.2 K/mm3 (4.0-10.0)
[2024-04-29] MEDS: KETOROLAC TROMETHAMINE 15 MG/ML VIAL IVPUSH ONE (21:59)
[2024-04-29] MEDS: DEXAMETHASONE LIQUID 0.5 MG/5 ML PO ONE (21:59)
[2024-04-29 22:15] LABS: POTASSIUM 3.9 mmol/L (3.5-5.1)
[2024-04-29 22:17] LABS: BLOOD UREA NITROGEN 8.9 mg/dL (7-18)
[2024-04-29 22:20] LABS: CREATININE 0.6 mg/dL (0.55-1.3)
[2024-04-30] MEDS ORDERED: AMOX TR/POT CLAV 875MG/125MG TABLETS (FP) PO ONE (00:30)
== END 2024-04-30 00:39 | disposition home or self-care (01) ==
LOC: JER 19:03
PROC: 3E0333Z Introduction of Anti-inflammatory into Peripheral Vein, Percutaneous Approach (ICD-10-PCS; principal; 2024-04-29)
DX: J02.9 Acute pharyngitis, unspecified (principal); H92.03 Otalgia, bilateral; R68.83 Chills (without fever); Z20.822 Contact with and (suspected) exposure to COVID-19
CPT/HCPCS: 0241U-QW; 36415; 70491-TC; 80048; 85025; 87651; 96374; 99285-25; Q9967

== ENCOUNTER 2024-09-23 04:21 | Day surgery (SDC) | payer OTHER ==
[2024-09-19 14:00] VITALS: BMI 24.5
[2024-09-23] MEDS: LIDOCAINE HCL 1% PRESERVATIVE FREE - 30ML VIAL IJ ONE
[~2024-09-23 04:21] MED LIST: ACETAMINOPHEN 500 MG TABLET (FP) PO PRN
[2024-09-23] MEDS ORDERED: BUPIVACAINE HCL/PF 0.5% (5MG/ML) 10 ML VIAL ONE (07:39)
[2024-09-23] MEDS ORDERED: LIDOCAINE HCL/PF 1% SDV 5ML VIAL ONE (07:39)
[2024-09-23] MEDS: BUPIVACAINE HCL/PF 0.5% (5MG/ML) 10 ML VIAL IJ ONE ×2 (14:36→14:39)
[2024-09-23 15:17] VITALS: RESP 18
[2024-09-23 15:55] VITALS: BP 108/60; PULSE 67; TEMP 97.3
== END 2024-09-23 16:30 | disposition home or self-care (01) ==
LOC: JASU-SURG 04:21
PROVIDERS: ATTEND Pain Medicine Pain Medicine
PROC: 3E0T33Z Introduction of Anti-inflammatory into Peripheral Nerves and Plexi, Percutaneous Approach (ICD-10-PCS; 2024-09-23)
PROC: 3E0T3BZ Introduction of Anesthetic Agent into Peripheral Nerves and Plexi, Percutaneous Approach (ICD-10-PCS; principal; 2024-09-23 13:45)
DX: M47.812 Spondylosis without myelopathy or radiculopathy, cervical region (principal)
CPT/HCPCS: 76000-TC-FY

== ENCOUNTER 2024-10-21 04:31 | Day surgery (SDC) | payer OTHER ==
[2024-10-17 10:14] VITALS: BMI 24.5
[2024-10-21] MEDS: LIDOCAINE HCL 1% PRESERVATIVE FREE - 30ML VIAL IJ ONE
[2024-10-21] MEDS ORDERED: ACETAMINOPHEN 500 MG TABLET (FP) PO PRN (09:08)
[2024-10-21 12:01] VITALS: RESP 16
[2024-10-21] MEDS: BUPIVACAINE HCL/PF 0.5% (5MG/ML) 10 ML VIAL IJ ONE ×2 (13:13)
[2024-10-21] MEDS: IOHEXOL 180 MG/1 ML ML IJ ONE ×2 (13:16)
[2024-10-21 13:34] VITALS: BP 139/79; PULSE 59; TEMP 97.7
== END 2024-10-21 13:55 | disposition home or self-care (01) ==
LOC: JASU-SURG 04:31
PROVIDERS: ATTEND Pain Medicine Pain Medicine
PROC: 3E0T33Z Introduction of Anti-inflammatory into Peripheral Nerves and Plexi, Percutaneous Approach (ICD-10-PCS; 2024-10-21)
PROC: 3E0T3BZ Introduction of Anesthetic Agent into Peripheral Nerves and Plexi, Percutaneous Approach (ICD-10-PCS; principal; 2024-10-21 13:45)
DX: M47.812 Spondylosis without myelopathy or radiculopathy, cervical region (principal)
CPT/HCPCS: 76000-TC-FY

== ENCOUNTER 2024-12-01 03:51 | Day surgery (SDC) | payer OTHER ==
[2024-11-29 16:01] VITALS: BMI 24.5
[2024-12-01] MEDS ORDERED: DEXAMETHASONE SOD PHOSPHATE 10 MG/1 ML VIAL ONE (07:10)
[2024-12-01] MEDS ORDERED: BUPIVACAINE HCL/PF 0.25% (2.5MG/ML) 10 ML VIAL ONE (07:10)
[2024-12-01] MEDS ORDERED: LIDOCAINE HCL/PF 1% SDV 5ML VIAL ONE (07:10)
[2024-12-01] MEDS ORDERED: ACETAMINOPHEN 500 MG TABLET (FP) PO PRN (08:45)
[2024-12-01] MEDS: LIDOCAINE HCL/PF 2% SDV 5ML VIAL INF ONE ×2 (08:49)
[2024-12-01] MEDS: LIDOCAINE HCL 1% PRESERVATIVE FREE - 30ML VIAL IJ ONE ×3 (08:49)
[2024-12-01] MEDS: DEXAMETHASONE SOD PHOSPHATE 10 MG/1 ML VIAL IVPUSH ONE ×2 (09:03)
[2024-12-01] MEDS: BUPIVACAINE HCL/PF 0.5% (5MG/ML) 10 ML VIAL IJ ONE ×3 (09:03)
[2024-12-01 13:39] VITALS: BP 107/70; PULSE 73; RESP 20; TEMP 97.5
== END 2024-12-01 13:40 | disposition home or self-care (01) ==
LOC: JASU-SURG 03:51
PROVIDERS: ATTEND Pain Medicine Pain Medicine
PROC: 015B3ZZ Destruction of Lumbar Nerve, Percutaneous Approach (ICD-10-PCS; principal; 2024-12-01 08:00)
DX: M47.812 Spondylosis without myelopathy or radiculopathy, cervical region (principal)
CPT/HCPCS: 76000-TC-FY; J1100

== ENCOUNTER 2024-12-29 07:04 | Day surgery (SDC) | payer OTHER ==
[2024-12-27 12:22] VITALS: BMI 24.5
[2024-12-29] MEDS ORDERED: BUPIVACAINE HCL/PF 0.5% (5MG/ML) 10 ML VIAL ONE (07:31)
[2024-12-29] MEDS ORDERED: DEXAMETHASONE SOD PHOSPHATE 10 MG/1 ML VIAL ONE (07:31)
[2024-12-29] MEDS ORDERED: LIDOCAINE HCL/PF 2% SDV 5ML VIAL ONE (07:31)
[2024-12-29] MEDS ORDERED: LIDOCAINE HCL/PF 1% SDV 5ML VIAL ONE (07:31)
[2024-12-29 12:59] VITALS: RESP 18
[2024-12-29] MEDS ORDERED: ACETAMINOPHEN 500 MG TABLET (FP) ONE (16:07)
[2024-12-29] MEDS: ACETAMINOPHEN 500 MG TABLET (FP) PO PRN (16:13)
[2024-12-29 16:22] VITALS: BP 124/69; PULSE 59; TEMP 98.6
== END 2024-12-29 17:00 | disposition home or self-care (01) ==
LOC: JASU-SURG 07:04
PROVIDERS: ATTEND Pain Medicine Pain Medicine
PROC: 01513ZZ Destruction of Cervical Nerve, Percutaneous Approach (ICD-10-PCS; principal; 2024-12-29 15:40)
DX: M47.812 Spondylosis without myelopathy or radiculopathy, cervical region (principal)
CPT/HCPCS: 76000-TC-FY; J1100

== ENCOUNTER 2025-02-10 17:43 | Emergency (ER) | payer OTHER ==
[2025-02-10 17:52] VITALS: BMI 24.2
[2025-02-10] MEDS ORDERED: KETOROLAC TROMETHAMINE 60 MG/2 ML VIAL ONE (19:37)
[2025-02-10] MEDS ORDERED: LIDOCAINE 4% PATCH TP ONE (19:37)
[2025-02-10] MEDS: LIDOCAINE 4% PATCH TP ONE (19:45)
[2025-02-10] MEDS: KETOROLAC TROMETHAMINE 30 MG/1 ML VIAL IM ONE (19:46)
[2025-02-10] MEDS ORDERED: SUMATRIPTAN SUCCINATE 6 MG/0.5 ML VIAL ONE (21:16)
[2025-02-10] MEDS: SUMATRIPTAN SUCCINATE 6 MG/0.5 ML VIAL SQ ONE (21:21)
[2025-02-10] MEDS ORDERED: LIDOCAINE PATCH REMOVAL MC SCH (22:00)
[2025-02-10 22:01] VITALS: BP 151/67; PULSE 58; RESP 16; TEMP 98.5
== END 2025-02-10 22:06 | disposition home or self-care (01) ==
LOC: JER 17:43
PROC: 3E0233Z Introduction of Anti-inflammatory into Muscle, Percutaneous Approach (ICD-10-PCS; principal; 2025-02-10)
PROC: 3E013GC Introduction of Other Therapeutic Substance into Subcutaneous Tissue, Percutaneous Approach (ICD-10-PCS; 2025-02-10)
DX: G44.209 Tension-type headache, unspecified, not intractable (principal); M79.7 Fibromyalgia; M54.2 Cervicalgia; M25.511 Pain in right shoulder; M25.512 Pain in left shoulder; G89.29 Other chronic pain
CPT/HCPCS: 70450-TC; 72125-TC; 96372; 99285-25